=== PATIENT | female | born 1935 | race Caucasian/White ===

== ENCOUNTER 2023-07-07 14:48 | Inpatient (IN) ==
[2023-07-07] MEDS ORDERED: ONDANSETRON INJ 2 MG/ML 2 ML VIAL IV STA (14:53)
[2023-07-07] MEDS ORDERED: SODIUM CHLORIDE 0.9% 500 ML IV STA (14:53)
--- NOTE | 2023-07-07 14:59 | Emergency Department Note ---
Impression & Plan Closed intertrochanteric fracture of left hip, Fall ED Provider Note NAME: LIZA BELL AGE: 88 SEX: F : 1935 ARRIVES VIA: Ambulance INFORMANT: Patient, EMS ED PROVIDER(S): Vicente Pringle DO CHIEF COMPLAINT: Leg pain HPI: The patient is an 88-year-old female who presented to the emergency department for an evaluation after a fall. The patient was going to clean her car off from this snow. The patient fell onto her left side. She had severe pain and deformity in her left leg. She was unable to ambulate. 911 was called. The patient arrived via ambulance. She received fentanyl and Zofran prior to arrival. ROS: See above HPI for pertinent positives & negatives. A total of 10 systems reviewed and were otherwise negative. PAST MEDICAL HISTORY: See Below PAST SURGICAL HISTORY: See Below FAMILY HISTORY: See Below SOCIAL HISTORY: See Below HOME MEDICATIONS: See Below ALLERGIES: See Below VITALS: See Below PHYSICAL EXAMINATION: GENERAL: The patient is awake and alert. She is very anxious. She appears to be uncomfortable. EYES: The conjunctivae are clear. The pupils are round and reactive. EARS, NOSE, MOUTH AND THROAT: The nose is without any evidence of any deformity. NECK: The neck is nontender and supple. RESPIRATORY: Normal respiratory effort is noted there is no evidence of wheezing rhonchi or rales CARDIOVASCULAR: Regular rate and rhythm noted there no murmurs rubs or gallops normal S1 normal S2. GASTROINTESTINAL: The abdomen is soft. Abdomen is nontender. BACK: No midline tenderness or or step-off noted range of motion in flexion extension as well as rotation no signs of muscle spasm noted MUSCULOSKELETAL/EXTREMITIES: There is shortening and deformity of the left thigh. There is significant tenderness to palpation over the midshaft of the femur. Pulses are symmetric in both feet. SKIN: There is no obvious evidence of any rash. There are no petechiae, pallor or cyanosis noted. NEUROLOGIC: Patient is awake alert and oriented x3 MEDICAL DECISION MAKING: The patient is an 88-year-old female who presented to the emergency department after a fall. The patient fell outside on a icy walkway. The patient landed on her left side. The patient's history and physical exam appear to be consistent with hip fracture. This was shown on x-ray of the left hip. She does have a large hematoma over her left femur. I discussed patient's laboratory and radiographic studies with her. I discussed her condition with the on-call [facility] hospitalist as well as the on-call orthopedic surgeon. They have agreed to evaluate the patient in the emergency department. The patient was treated with pain medication. The patient was feeling somewhat improved Triage Nursing notes reviewed. Prior medical records reviewed Vital Signs: reviewed and remarkable for elevated blood pressure. Differential diagnosis: Fracture, dislocation, contusion, intra-abdominal, pneumothorax, intrathoracic, intracranial, neurologic, compartment syndrome, rhabdomyolysis, as well as other pathologies. ER treatment provided: See below Diagnostics interpreted by me: ECG: EKG was obtained in the emergency department. My interpretation is sinus rhythm at 97 bpm. There is a left bundle branch block pattern noted. There is no PVCs noted. This was compared to a tracing from May 19, 2022. No changes were noted Cardiac Monitoring: An order was placed for continuous cardiac monitoring. The monitor shows a rate of 84 bpm with sinus rhythm. Laboratory studies: As stated above and show below. Imaging studies: See below. Radiographic imaging was reviewed by myself Consultation(s): I discussed this case with Dr. David who is on-call for the [facility] hospitalist group. I discussed this case with Dr. Campbell who is on-call for orthopedic surgery. 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 Roberto Osteoporosis Hyperlipidemia Hypertension Thyroid nodule being monitored Surgical History H/O right breast biopsy (06/17/22) Right Breast Biopsy with Alethea Snow Removing Supervisor(Right) - Omid Woodward DO, FACS History of tooth extraction History of tonsillectomy Hx of colonoscopy H/O dilation and curettage S/P surgical removal of pilonidal cyst H/O breast biopsy 1970?>RT/BENIGN S/P colon resection (2006) 2006 S/P appendectomy S/P coronary artery stent placement (2005) 2006>1 stent placed *[facility] Family History Mother Cancer Sister Diabetes Heart disease Cancer Hypertension Other No family history of adverse response to anesthesia Denies family history of Ovarian cancer Prostate cancer Myocardial infarction Breast cancer Colorectal cancer Social History Smoking Status: Former smoker Tobacco Type: Cigarettes Age Started Using Tobacco: 19; Age Quit Using Tobacco: 30; packs per day: 0.25; Cigarettes Per Day: .[id number]; Second Hand Exposure: No; Do You Dip or Chew Tobacco: No; Hx Alcohol Use: No Hx Substance Use: No Preferred Language: [place]al[place] Visual Impairment: Partially Limited Hearing Ability: Normal 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 Required: No Beliefs That Will Affect Care: None marital status: Current Living Situation: Spouse Current Living Situation Comment: Holli Suarez 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 How many Children do You have: 1 Feels Safe at Home: Yes Childhood Exposure to Second-Hand Smoke: Yes Diet: regular Diet Comment: regular caffeine: Yes during the past year weight has: remained stable Dental Care, Regularly: Yes Physical Activity Frequency: Daily Physical Activity Frequency Comment: walking daily Seatbelt Use: always Sunscreen Use: Yes Assistive Devices: Denture - Upper and Denture - Lower Allergies Allergies Allergy/AdvReac Type Severity Reaction Status Date / Time ciprofloxacin [From Cipro] Allergy Mild Rash Verified 06/07/23 13:17 clopidogrel [From Plavix] Allergy Mild Rash Verified 06/07/23 13:17 lisinopril [From Zestril] Allergy Mild Rash Verified 06/07/23 13:17 Penicillins Allergy Mild Rash Verified 06/07/23 13:17 Tetanus Vaccines and Toxoid Allergy Mild Rash Verified 06/07/23 13:17 Calcium Channel Blocking AdvReac Unknown told not Verified 06/07/23 13:17 Agent Dilt to take d/t allergy to plavix isosorbide [From Imdur] AdvReac Unknown told not Verified 06/07/23 13:17 to take d/t allergy to plavix Home Meds Home Medications Medication Instructions Recorded Confirmed acetaminophen 500 mg tablet 500 mg PO Q6H PRN Pain 05/27/20 07/07/23 (Tylenol Extra Strength) aspirin 81 mg tablet,delayed 81 mg PO QAM 05/27/20 07/07/23 release (Adult Aspirin Regimen) cholecalciferol (vitamin D3) 50 50 mcg PO QAM 05/27/20 07/07/23 mcg (2,000 unit) tablet (Vitamin D3) cranberry 500 mg capsule 500 mg PO BID 05/27/20 07/07/23 omeprazole 20 mg capsule,delayed 20 mg PO QAM 05/27/20 07/07/23 release psyllium husk 0.4 gram capsule 0.4 g PO BID 05/27/20 07/07/23 (Metamucil) calcium carbonate 600 mg calcium 600 mg PO BID 06/05/21 07/07/23 (1,500 mg) tablet (Calcium) zoledronic acid 5 mg/100 mL in 1 ea IV YEARLY 09/02/21 06/07/23 mannitol 5 %-water intravenous piggybck (Reclast) amlodipine 2.5 mg-benazepril 10 mg 1 cap PO DAILY 11/12/22 06/07/23 capsule letrozole 2.5 mg tablet 2.5 mg PO DAILY 12/08/22 07/07/23 Previous Rx's Medication Instructions Recorded losartan 100 mg tablet 100 mg PO DAILY #90 tabs 02/03/23 pravastatin 20 mg tablet 20 mg PO DAILY #90 tabs 03/05/23 clonidine HCl 0.1 mg tablet 0.1 mg PO BID #180 tabs 05/03/23 metoprolol tartrate 50 mg tablet 50 mg PO BID #180 tabs 06/28/23 Results & Data (ED) Vital Signs Vital Signs - 24 hr 07/07/23 14:58 07/07/23 15:02 07/07/23 15:03 Temperature 36.8 C Temperature Source Oral Pulse Rate 101 H 106 H Pulse Rate from SpO2 Sensor Respiratory Rate 30 H Respiratory Effort / Characteristics Non-Labored Spontaneous Respiratory Depth Normal Blood Pressure 164/88 H Blood Pressure Mean 113 Pulse Oximetry 92 91 Oxygen Delivery Method Room Air Room Air Oxygen Flow Rate Sepsis Recent Fever Within 48 Hours No Sepsis New/Unexplained Change in Mental Status No Sepsis Action Taken by Nursing No Action Required 07/07/23 15:49 07/07/23 15:49 07/07/23 16:00 Temperature Temperature Source Pulse Rate 93 H Pulse Rate from SpO2 Sensor 98 H Respiratory Rate 20 Respiratory Effort / Characteristics Respiratory Depth Blood Pressure 168/89 H 178/91 H Blood Pressure Mean 122 133 Pulse Oximetry 91 Oxygen Delivery Method Oxygen Flow Rate 2 Sepsis Recent Fever Within 48 Hours Sepsis New/Unexplained Change in Mental Status Sepsis Action Taken by Nursing 07/07/23 16:00 07/07/23 16:30 07/07/23 16:30 Temperature Temperature Source Pulse Rate 97 H 96 H Pulse Rate from SpO2 Sensor 99 H 98 H Respiratory Rate 23 20 Respiratory Effort / Characteristics Respiratory Depth Blood Pressure 169/83 H Blood Pressure Mean 111 Pulse Oximetry 91 91 Oxygen Delivery Method Oxygen Flow Rate 2 2 Sepsis Recent Fever Within 48 Hours Sepsis New/Unexplained Change in Mental Status Sepsis Action Taken by Nursing 07/07/23 17:00 07/07/23 17:01 07/07/23 17:01 Temperature Temperature Source Pulse Rate 96 H 106 H Pulse Rate from SpO2 Sensor 96 H 105 H Respiratory Rate 20 18 Respiratory Effort / Characteristics Respiratory Depth Blood Pressure 122/82 Blood Pressure Mean 84 Pulse Oximetry 90 94 Oxygen Delivery Method Oxygen Flow Rate 2 2 Sepsis Recent Fever Within 48 Hours Sepsis New/Unexplained Change in Mental Status Sepsis Action Taken by Skilled Nursing Medications Current Medication List: was personally reviewed by me Laboratory Data Attestation: I reviewed the patient's lab results. 07/07/23 16:27 07/07/23 16:27 Lab Results 07/07/23 Range/Units 16:27 WBC 12.86 H (4.8-10.8) K/ul RBC 4.59 (4.20-5.40) M/uL Hgb 15.0 (12.0-16.0) g/dl Hct 44.2 (37.0-47.0) % MCV 96.3 (80.0-100.0) fL MCH 32.7 (25.0-34.0) pg MCHC 33.9 (32.0-36.0) g/dL RDW Std Deviation 45.0 (36.4-46.3) fL RDW Coeff of Angela 12.6 (11.5-14.5) % Plt Count 262 (130-400) K/uL MPV 9.7 (9.4-12.4) fL Immature Gran % (Auto) 0.4 % Neut % (Auto) 80.9 % Lymph % (Auto) 12.1 % [place] % (Auto) 4.0 % Eos % (Auto) 1.9 % Baso % (Auto) 0.7 % Neut # (Auto) 10.39 H (1.40-6.50) K/uL Lymph # (Auto) 1.56 (1.20-3.40) K/uL [place] # (Auto) 0.52 (0.11-0.59) K/uL Eos # (Auto) 0.25 (0.00-0.50) K/uL Baso # (Auto) 0.09 (0.00-0.20) K/uL Immature Gran # (Auto) 0.05 (0.01-0.20) K/uL Sodium 135 L (136-145) mmol/L Potassium 4.3 (3.5-5.1) mmol/L Chloride 102 (98-107) mmol/L Carbon Dioxide 24 (21-32) mmol/L Anion Gap 9 (3-11) BUN 29 H (6-23) mg/dl Creatinine 1.26 H (0.6-1.2) mg/dl Est Cr Clr Drug Dosing 23.3 ml/min Est GFR ( Amer) 44.1 ml/min Est GFR (Non-Af Amer) 38.0 ml/min BUN/Creatinine Ratio 23.0 H (10-20) Glucose 139 H (70-99(Fasting)) mg/dl Calcium 9.1 (8.6-10.3) mg/dl Total Bilirubin 0.4 (0.2-1.0) mg/dl AST 19 (13-39) U/L ALT 9 (7-52) U/L Alkaline Phosphatase 49 (34-104) U/L Total Protein 7.2 (6.0-8.3) gm/dl Albumin 3.7 (3.4-5.0) gm/dl Globulin 3.5 (2.5-4.0) gm/dl Albumin/Globulin Ratio 1.1 (0.9-2) Lipase 93 H (11-82) U/L Administered Medications Discontinued Medications Fentanyl Citrate (Fentanyl Citrate Pf 100 Mcg/2 Ml Vial) 50 mcg IV Q15M PRN PRN Reason: Pain Stop: 07/21/23 14:52 Last Admin: 07/07/23 19:24 Dose: 50 mcg Documented By: Admin: 07/07/23 18:17 Dose: 50 mcg Documented By: Admin: 07/07/23 15:46 Dose: 50 mcg Documented By: NATALY Sodium Chloride (Nss) 500 mls @ 999 mls/hr IV .Q31M STA Stop: 07/07/23 15:23 Last Infusion: 07/07/23 17:13 Dose: Infused Documented By: Admin: 07/07/23 15:39 Dose: 999 mls/hr Documented By: NATALY Ondansetron HCl (Ondansetron Inj 2 Mg/Ml 2 Ml Vial) 4 mg IV NOW STA Stop: 07/07/23 14:54 Last Admin: 07/07/23 15:50 Dose: 4 mg Documented By: NATALY Imaging Data Attestation: I personally reviewed and interpreted this imaging study as follows: My Impression: X-ray of the left femur was obtained in the emergency department. My interpretation is displaced comminuted intertrochanteric left hip fracture, final report below. 1 view chest x-ray was obtained in the emergency department. My interpretation is no free air or definite infiltrate, final report below. Radiologist's Impression: Femur X-Ray 07/07/23 14:53 XR femur LT 2V routine CLINICAL HISTORY: fall. Left hip pain. COMPARISON STUDY: None. FINDINGS: There is a comminuted and displaced intertrochanteric fracture within the proximal left femur. No dislocation of the femoral head. The visualized pelvic bones are intact. The mid to distal left femur is intact. IMPRESSION: Comminuted and displaced intertrochanteric fracture within the proximal left femur. ACT 112: Negative or not required by law. Electronically signed by: Peterson Triplett M.D. 07/07/2023 4:00 PM Chest X-Ray 07/07/23 14:54 SINGLE VIEW CHEST CLINICAL HISTORY: Fall. FINDINGS: An AP supine chest radiograph is compared to study dated 05/19/2022. The heart is mildly enlarged noting atherosclerotic calcification of the thoracic aorta. There is diffuse interstitial thickening. No focal airspace consolidation or large pleural effusion is identified. No pneumothorax is seen. The skeletal structures are osteopenic. The bony thorax is grossly intact. IMPRESSION: 1. Cardiomegaly without radiographic evidence of congestive failure. 2. There is diffuse nonspecific interstitial thickening. This could represent a mild pneumonitis or possibly fluid overload. Correlate clinically. ACT 112: Negative or not required by law. Electronically signed by: Mao Greenwood M.D. 07/07/2023 3:50 PM Pelvis X-Ray 07/07/23 16:36 SINGLE VIEW PELVIS CLINICAL HISTORY: Preoperative examination. Left hip fracture. FINDINGS: An AP, portable, supine view of the pelvis is correlated with radiographs of the left femur performed earlier the same day 07/07/2023. The skeletal structures are osteopenic. Again seen is a comminuted and angulated intertrochanteric fracture of the left proximal femur. There is medial displacement of the lesser trochanter. Overlying soft tissue edema is noted. No additional acute fracture is seen involving the right hip or the bony pelvis. Moderate arthritic change and joint space narrowing is seen in the hips. There is degenerative sclerosis of the sacroiliac joints. IMPRESSION: 1. Unchanged appearance of an intertrochanteric fracture of the left proximal femur. 2. No additional fracture is seen involving the right hip or the bony pelvis. Electronically signed by: Mao Greenwood M.D. 07/07/2023 5:34 PM Discharge Plan Visit Data Chief Complaint: Fall Stated Complaint: FALL, HIP PAIN ED Provider: Vicente Pringle Discharge Problem: Closed intertrochanteric fracture of left hip, Fall Patient Disposition: Admitted As Inpatient Discharge Instructions Interventions: ED Discharge Assessment Last Done: 07/07/23 19:38 Discharge Problem: Closed intertrochanteric fracture of left hip Qualifiers: Encounter type: initial encounter Fracture alignment: displaced Qualified Code(s): S72.142A - Displaced intertrochanteric fracture of left femur, initial encounter for closed fracture Fall Qualifiers: Encounter type: initial encounter Qualified Code(s): W19.XXXA - Unspecified fall, initial encounter
[2023-07-07] MEDS: fentaNYL citrate PF 100 MCG/2 ML VIAL IV PRN ×3 (15:46→19:24)
--- NOTE | 2023-07-07 15:52 | XRay Report ---
SINGLE VIEW CHEST CLINICAL HISTORY: Fall. FINDINGS: An AP supine chest radiograph is compared to study dated 05/19/2022. The heart is mildly en larged noting atherosclerotic calcification of the thoracic aorta. There is diffuse interstitial thic kening. No focal airspace consolidation or large pleural effusion is identified. No pneumothorax is s een. The skeletal structures are osteopenic. The bony thorax is grossly intact. IMPRESSION: 1. Cardiomegaly without radiographic evidence of congestive failure. 2. There is diffuse nonspecific interstitial thickening. This could represent a mild pneumonitis or p ossibly fluid overload. Correlate clinically. ACT 112: Negative or not required by law. Electronically signed by: Mao Greenwood M.D. 07/07/2023 3:50 PM
--- NOTE | 2023-07-07 16:03 | XRay Report ---
XR femur LT 2V routine CLINICAL HISTORY: fall. Left hip pain. COMPARISON STUDY: None. FINDINGS: There is a comminuted and displaced intertrochanteric fracture within the proximal left fem ur. No dislocation of the femoral head. The visualized pelvic bones are intact. The mid to distal lef t femur is intact. IMPRESSION: Comminuted and displaced intertrochanteric fracture within the proximal left femur. ACT 112: Negative or not required by law. Electronically signed by: Peterson Triplett M.D. 07/07/2023 4:00 PM
--- NOTE | 2023-07-07 16:09 | History & Physical Report ---
Date of Service July 07, 2023 Assessment & Plan (1) Fall: Plan: Patient slipped on ice and fell on her left side while going to clean off her car in the snow on 07/07 Multiple episodes of vomiting due to pain Hgb 15.0 and HCT 44.2 on arrival EKG revealed NSR at 97 bpm; QTc 480; old LBBB Femur x-ray revealed comminuted and displaced intertrochanteric fracture within the proximal left femur Patient received fentanyl 50mcg and Zofran 4 mg in the ED Multimodal pain regimen regimen as follows: Acetaminophen 1000 mg IV q8h for pain 13 Dilaudid 0.5 mg IV q2h for pain 46 Dilaudid 1.0 mg IV q2h for pain 710 Zofran as needed for nausea/vomiting Orthopedic surgery consulted; perioperative abx per ortho team A.m. CBC, BMP (2) Closed intertrochanteric fracture of left hip: Plan: Per orthopedic surgery, n.p.o. at midnight and plan is to go to the OR on 07/08 (3) Stented coronary artery: Plan: CAD s/p stent in 2006 Patient reports she took aspirin the morning of 07/07 Hold aspirin prior to surgery on 07/08, then consider restarting postop (4) Chronic kidney disease, stage 3 (moderate): Plan: BUN 29, creatinine 1.26 (baseline 1.09), EGFR 38 on arrival Avoid nephrotoxic agents where possible (5) GERD (gastroesophageal reflux disease): Plan: Continue omeprazole or pantoprazole equivalent (6) Hyperlipidemia: Plan: Continue pravastatin (7) Hypertension: Plan: Continue metoprolol Hold losartan, clonidine for now Patient is unsure if she is taking amlodipinebenazepril Plan [facility]: [facility]/DNI AHA diet, then n.p.o. 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 Patient presented after slipping on ice while going outside to clean her car from the side on 07/07. She fell on her left hip. Denies head strike. She does not use ambulatory assist devices at home. She reports that she took all of her regular morning medications; no recent change medications. She reports that her memory of falling was foggy, but denies dizziness or lightheadedness before falling. Left femur x-ray revealed a displaced intertrochanteric fracture within the proximal left femur on arrival. She denies prior injuries to the left leg, but notes she might have broken one of her legs when she was 5 years old. At time of admission, she reports her left hip pain is 6/10; no radiation; movement makes it worse. No at home oxygen use. She denies alcohol, smoking, tobacco use. SpO2 89% on 4 L NC, hypertensive at 164/88, mildly tachycardic at 106 bpm at time of admission. ED course: Fentanyl 50mcg IV Zofran 4 mg IV ROS: Patient endorses severe left hip pain, nausea from pain, vomiting x5 episodes (due to the pain). Patient denies fever, chills, sweats, dizziness, lightheadedness, chest pain, SOB, abdominal pain, diarrhea, urinary s/s, burning with urination, or numbness/tingling in the left leg. Allergies Allergy/AdvReac Type Severity Reaction Status Date / Time ciprofloxacin [From Cipro] Allergy Mild Rash Verified 06/07/23 13:17 clopidogrel [From Plavix] Allergy Mild Rash Verified 06/07/23 13:17 lisinopril [From Zestril] Allergy Mild Rash Verified 06/07/23 13:17 Penicillins Allergy Mild Rash Verified 06/07/23 13:17 Tetanus Vaccines and Toxoid Allergy Mild Rash Verified 06/07/23 13:17 Calcium Channel Blocking AdvReac Unknown told not Verified 06/07/23 13:17 Agent Dilt to take d/t allergy to plavix isosorbide [From Imdur] AdvReac Unknown told not Verified 06/07/23 13:17 to take d/t allergy to plavix Home Medications Medication Instructions Recorded Confirmed Type acetaminophen 500 mg tablet 500 mg PO Q6H PRN Pain 05/27/20 07/07/23 History (Tylenol Extra Strength) aspirin 81 mg tablet,delayed 81 mg PO QAM 05/27/20 07/07/23 History release (Adult Aspirin Regimen) cholecalciferol (vitamin D3) 50 50 mcg PO QAM 05/27/20 07/07/23 History mcg (2,000 unit) tablet (Vitamin D3) cranberry 500 mg capsule 500 mg PO BID 05/27/20 07/07/23 History omeprazole 20 mg capsule,delayed 20 mg PO QAM 05/27/20 07/07/23 History release psyllium husk 0.4 gram capsule 0.4 g PO BID 05/27/20 07/07/23 History (Metamucil) calcium carbonate 600 mg calcium 600 mg PO BID 06/05/21 07/07/23 History (1,500 mg) tablet (Calcium) zoledronic acid 5 mg/100 mL in 1 ea IV YEARLY 09/02/21 06/07/23 History mannitol 5 %-water intravenous piggybck (Reclast) amlodipine 2.5 mg-benazepril 10 mg 1 cap PO DAILY 11/12/22 06/07/23 History capsule letrozole 2.5 mg tablet 2.5 mg PO DAILY 12/08/22 07/07/23 History losartan 100 mg tablet 100 mg PO DAILY #90 tabs 02/03/23 07/07/23 Rx pravastatin 20 mg tablet 20 mg PO DAILY #90 tabs 03/05/23 07/07/23 Rx clonidine HCl 0.1 mg tablet 0.1 mg PO BID #180 tabs 05/03/23 07/07/23 Rx metoprolol tartrate 50 mg tablet 50 mg PO BID #180 tabs 06/28/23 07/07/23 Rx Past Med/Surg History Medical History 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 Roberto Osteoporosis Hyperlipidemia Hypertension Thyroid nodule being monitored Surgical History H/O right breast biopsy (06/17/22) Right Breast Biopsy with Alethea Boatbuilder Supervisor(Right) - Omid Woodward DO, FACS History of tooth extraction History of tonsillectomy Hx of colonoscopy H/O dilation and curettage S/P surgical removal of pilonidal cyst H/O breast biopsy 1970?>RT/BENIGN S/P colon resection (2006) 2006 S/P appendectomy S/P coronary artery stent placement (2005) 2005>1 stent placed *[facility] Family History Mother Cancer Sister Diabetes Heart disease Cancer Hypertension Other No family history of adverse response to anesthesia Denies family history of Ovarian cancer Prostate cancer Myocardial infarction Breast cancer Colorectal cancer Social History Smoking Status: Former smoker Tobacco Type: Cigarettes Age Started Using Tobacco: 19; Age Quit Using Tobacco: 30; packs per day: 0.25; Cigarettes Per Day: .[id number]; Second Hand Exposure: No; Do You Dip or Chew Tobacco: No; Hx Alcohol Use: No Hx Substance Use: No Preferred Language: Albanian Visual Impairment: Partially Limited Hearing Ability: Normal Outsole Cementer Required: No Beliefs That Will Affect Care: None marital status: Current Living Situation: Spouse Current Living Situation Comment: Holli Suarez 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 How many Children do You have: 1 Feels Safe at Home: Yes Childhood Exposure to Second-Hand Smoke: Yes Diet: regular Diet Comment: regular caffeine: Yes during the past year weight has: remained stable Dental Care, Regularly: Yes Physical Activity Frequency: Daily Physical Activity Frequency Comment: walking daily Seatbelt Use: always Sunscreen Use: Yes Assistive Devices: Denture - Upper and Denture - Lower Review of Systems Review of Systems: See HPI above Physical Exam Physical Exam: General: Acute physical distress; non-toxic appearing; frail; trembling; well- nourished; cooperative HEENT: normocephalic, atraumatic; no scleral icterus; PERRLA w/ EOMs intact; moist mucus membrane; vision and hearing grossly intact Neck: supple; no JVD; no lymphadenopathy; trachea midline Skin: warm, dry without signs of tenting; no cyanosis; no rashes, bruising, lesions, or erythema noted CV: chest wall NTP; RR, tachycardic at 106 bpm; S1/S2 normal; no murmurs/rubs/gallops; pulses intact and symmetric at radial, DP, and PT Lungs: no acute respiratory distress; symmetrical chest wall expansion; clear breath sounds across all lung delatorre w/o adventitious sounds; no wheezing ABD: Soft, NTP; BS present; no rebound/guarding; no ascites; no distention; negative CVA tenderness LLE: Left hip protruding, TTP; no erythema, bruising, or signs of bleed MSK: no tics or fasciculations; no edema noted in the LEs b/l, nonerythematous; patient demonstrates ability to wiggle toes bilaterally Neuro: A&Ox3; normal mood and affect; fluent speech; no focal deficits; she reports that sensation is intact at the toes bilaterally assessed via light touch; feet are neurovascularly intact, symmetric Results & Data Results & Data Vital Signs (Past 12 Hours) Vital Signs Temp Pulse Resp BP Pulse Ox O2 Del Method 07/07/23 15:03 91 Room Air 07/07/23 15:02 106 H 07/07/23 14:58 36.8 C 101 H 30 H 164/88 H 92 Room Air Diagnostic Findings Femur X-Ray 07/07/23 14:53 XR femur LT 2V routine CLINICAL HISTORY: fall. Left hip pain. COMPARISON STUDY: None. FINDINGS: There is a comminuted and displaced intertrochanteric fracture within the proximal left femur. No dislocation of the femoral head. The visualized pelvic bones are intact. The mid to distal left femur is intact. IMPRESSION: Comminuted and displaced intertrochanteric fracture within the proximal left femur. ACT 112: Negative or not required by law. Electronically signed by: Peterson Triplett M.D. 07/07/2023 4:00 PM Chest X-Ray 07/07/23 14:54 SINGLE VIEW CHEST CLINICAL HISTORY: Fall. FINDINGS: An AP supine chest radiograph is compared to study dated 05/19/2022. The heart is mildly enlarged noting atherosclerotic calcification of the thoracic aorta. There is diffuse interstitial thickening. No focal airspace consolidation or large pleural effusion is identified. No pneumothorax is seen. The skeletal structures are osteopenic. The bony thorax is grossly intact. IMPRESSION: 1. Cardiomegaly without radiographic evidence of congestive failure. 2. There is diffuse nonspecific interstitial thickening. This could represent a mild pneumonitis or possibly fluid overload. Correlate clinically. ACT 112: Negative or not required by law. Electronically signed by: Mao Greenwood M.D. 07/07/2023 3:50 PM Code Status & VTE Plan Code Status DNR/DNI VTE Prophylaxis Plan VTE Prophylaxis will be ordered: Yes PG Care Time/CCT Total # of Minutes Spent Total Time Spent with Patient: Total time spent is greater than 50% in coordination of care (as documented) at patient's floor/unit and/or counseling patient: Coding [place] [address] INT INP/OBS CARE 3/75MIN Patient Type Established Medical Decision Making High Complexity Diagnoses Fall W19.XXXA Encounter type: initial encounter Closed intertrochanteric fracture of left hip S72.142A Encounter type: initial encounter Fracture alignment: displaced Stented coronary artery Z95.5 Chronic kidney disease, stage 3 (moderate) N18.30 GERD (gastroesophageal reflux disease) K21.9 Hyperlipidemia E78.5 Hypertension I10 (1) Fall Encounter type: initial encounter Qualified Code(s): W19.XXXA - Unspecified fall, initial encounter (2) Closed intertrochanteric fracture of left hip Encounter type: initial encounter Fracture alignment: displaced Qualified Code(s): S72.142A - Displaced intertrochanteric fracture of left femur, initial encounter for closed fracture
[2023-07-07 16:52] LABS: Basophils # (auto) 0.09 K/uL (0.00-0.20); Basophils % (auto) 0.7 %; Eosinophils # (auto) 0.25 K/uL (0.00-0.50); Eosinophils % (auto) 1.9 %; Hematocrit (blood only) 44.2 % (37.0-47.0); Immature Granulocytes # (auto) 0.05 K/uL (0.01-0.20); Immature Granulocytes % (auto) 0.4 %; Lymphocytes # (auto) 1.56 K/uL (1.20-3.40); Lymphocytes % (auto) 12.1 %; Mean Corpuscular Hemoglobin 32.7 pg (25.0-34.0); Mean Corpuscular Hgb Conc 33.9 g/dL (32.0-36.0); Mean Corpuscular Volume 96.3 fL (80.0-100.0); Mean Platelet Volume 9.7 fL (9.4-12.4); Monocytes # (auto) 0.52 K/uL (0.11-0.59); Neutrophils # (auto) 10.39 K/uL (1.40-6.50); Neutrophils % (auto) 80.9 %; Platelet Count 262 K/uL (130-400); RDW Coefficient of Variation 12.6 % (11.5-14.5); Red Blood Count 4.59 M/uL (4.20-5.40); White Blood Count 12.86 K/ul (4.8-10.8)
[2023-07-07 17:00] LABS: Albumin Globulin Ratio 1.1 (0.9-2); Albumin Level 3.7 gm/dl (3.4-5.0); Bilirubin,Total 0.4 mg/dl (0.2-1.0); Calcium 9.1 mg/dl (8.6-10.3); Creatinine Clr Calc Pharmacy 23.3 ml/min; Est GFR (African American) 44.1 ml/min; Globulin 3.5 gm/dl (2.5-4.0); Potassium 4.3 mmol/L (3.5-5.1); Total Protein 7.2 gm/dl (6.0-8.3)
--- NOTE | 2023-07-07 17:25 | Orthopedic Consultation ---
Date of Consultation July 07, 2023 Assessment & Plan (1) Closed intertrochanteric fracture of left hip: Patient will require surgical intervention Left hip ORIF trochanteric femur fracture. Scheduled for OR tomorrow with Dr Draper Discussed with family and patient -Consent obtained -NPO midnight tonight -Hold anticoagulants -Intra-op infection prophylaxis: 2grams Cefazolin -Medicine involved to ensure patient optimized for surgery -Pre-op IV LR fluids -Void infection prevention practitioner to OR -TEDS/foot pumps non-operative leg intra-op -Pain control per primary Supervising Physician Co-Signing Physician Notes I saw and examined the patient, reviewed her x-rays and chart in the electronic medical record, formulated the above plan, and obtained written informed consent from the patient and the presence of her and neighbor as well as my PA. This constitutes the substantial portion of the visit. Plan will be for open reduction internal fixation of her left intertrochanteric femur fracture tomorrow assuming she is medically cleared. N.p.o. after midnight tonight. History of Present Illness Reason for Consultation: Left hip fracture History of Present Illness Petra is an 88-year-old female with PMH of HTN, HLD, osteoporosis, CAD, GERD, CKD stage III, arthritis, papillary adenocarcinoma, and AV insufficiency. Patient presented for a fall on 07/07 around noon. Left femur x-ray revealed a displaced intertrochanteric fracture within the proximal left femur on arrival. Patient seen by myself and Dr Draper who recommended surgical intervention. Patient is currently on daily 81mg aspirin. She walks with no walker or cane prior to her fall. Her pain is 6/10 currently. She denies any n/t in her left leg. She is unable to move her leg. She denies any prior issues or surgeries with her hip or left leg. Allergies Allergy/AdvReac Type Severity Reaction Status Date / Time ciprofloxacin [From Cipro] Allergy Mild Rash Verified 06/07/23 13:17 clopidogrel [From Plavix] Allergy Mild Rash Verified 06/07/23 13:17 lisinopril [From Zestril] Allergy Mild Rash Verified 06/07/23 13:17 Penicillins Allergy Mild Rash Verified 06/07/23 13:17 Tetanus Vaccines and Toxoid Allergy Mild Rash Verified 06/07/23 13:17 Calcium Channel Blocking AdvReac Unknown told not Verified 06/07/23 13:17 Agent Dilt to take d/t allergy to plavix isosorbide [From Imdur] AdvReac Unknown told not Verified 06/07/23 13:17 to take d/t allergy to plavix Home Medications Medication Instructions Recorded Confirmed Type acetaminophen 500 mg tablet 500 mg PO Q6H PRN Pain 05/27/20 07/07/23 History (Tylenol Extra Strength) aspirin 81 mg tablet,delayed 81 mg PO QAM 05/27/20 07/07/23 History release (Adult Aspirin Regimen) cholecalciferol (vitamin D3) 50 50 mcg PO QAM 05/27/20 07/07/23 History mcg (2,000 unit) tablet (Vitamin D3) cranberry 500 mg capsule 500 mg PO BID 05/27/20 07/07/23 History omeprazole 20 mg capsule,delayed 20 mg PO QAM 05/27/20 07/07/23 History release psyllium husk 0.4 gram capsule 0.4 g PO BID 05/27/20 07/07/23 History (Metamucil) calcium carbonate 600 mg calcium 600 mg PO BID 06/05/21 07/07/23 History (1,500 mg) tablet (Calcium) zoledronic acid 5 mg/100 mL in 1 ea IV YEARLY 09/02/21 06/07/23 History mannitol 5 %-water intravenous piggybck (Reclast) amlodipine 2.5 mg-benazepril 10 mg 1 cap PO DAILY 11/12/22 06/07/23 History capsule letrozole 2.5 mg tablet 2.5 mg PO DAILY 12/08/22 07/07/23 History losartan 100 mg tablet 100 mg PO DAILY #90 tabs 02/03/23 07/07/23 Rx pravastatin 20 mg tablet 20 mg PO DAILY #90 tabs 03/05/23 07/07/23 Rx clonidine HCl 0.1 mg tablet 0.1 mg PO BID #180 tabs 05/03/23 07/07/23 Rx metoprolol tartrate 50 mg tablet 50 mg PO BID #180 tabs 06/28/23 07/07/23 Rx Patient History Medical History 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 Roberto Osteoporosis Hyperlipidemia Hypertension Thyroid nodule being monitored Surgical History H/O right breast biopsy (06/17/22) Right Breast Biopsy with Alethea Food Service Clerk(Right) - Omid Woodward DO, FACS History of tooth extraction History of tonsillectomy Hx of colonoscopy H/O dilation and curettage S/P surgical removal of pilonidal cyst H/O breast biopsy 1969?>RT/BENIGN S/P colon resection (2006) 2006 S/P appendectomy S/P coronary artery stent placement (2005) 2005>1 stent placed *[facility] Family History Mother Cancer Sister Diabetes Heart disease Cancer Hypertension Other No family history of adverse response to anesthesia Denies family history of Ovarian cancer Prostate cancer Myocardial infarction Breast cancer Colorectal cancer Social History Smoking Status: Former smoker Tobacco Type: Cigarettes Age Started Using Tobacco: 19; Age Quit Using Tobacco: 30; packs per day: 0.25; Cigarettes Per Day: .[id number]; Second Hand Exposure: No; Do You Dip or Chew Tobacco: No; Hx Alcohol Use: No Hx Substance Use: No Preferred Language: Thai Visual Impairment: Partially Limited Hearing Ability: Normal Service Center Representative Required: No Beliefs That Will Affect Care: None marital status: Current Living Situation: Spouse Current Living Situation Comment: Holli Suarez 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 Appears to be in pain LLE: leg shortened and externally rotated. Patient has her knee bent at 90. Skin intact, however, she has large hematoma present left anterior proximal thigh. Tender to the touch. She can wiggle her toes. Distal extremity warm and pink. Faint DP pulse. Sensation in tact distally. CVS:+S1, +S2, RRR, no murmurs Lungs: CLABL, no wheezing or ronchi Results & Data Vital Signs (Past 12 Hours) Vital Signs Temp Pulse Resp BP Pulse Ox O2 Del Method 07/07/23 15:03 91 Room Air 07/07/23 15:02 106 H 07/07/23 14:58 36.8 C 101 H 30 H 164/88 H 92 Room Air Laboratory Results 07/07/23 Range/Units 16:27 WBC 12.86 H (4.8-10.8) K/ul RBC 4.59 (4.20-5.40) M/uL Hgb 15.0 (12.0-16.0) g/dl Hct 44.2 (37.0-47.0) % MCV 96.3 (80.0-100.0) fL MCH 32.7 (25.0-34.0) pg MCHC 33.9 (32.0-36.0) g/dL RDW Std Deviation 45.0 (36.4-46.3) fL RDW Coeff of Angela 12.6 (11.5-14.5) % Plt Count 262 (130-400) K/uL MPV 9.7 (9.4-12.4) fL Immature Gran % (Auto) 0.4 % Neut % (Auto) 80.9 % Lymph % (Auto) 12.1 % [place] % (Auto) 4.0 % Eos % (Auto) 1.9 % Baso % (Auto) 0.7 % Neut # (Auto) 10.39 H (1.40-6.50) K/uL Lymph # (Auto) 1.56 (1.20-3.40) K/uL [place] # (Auto) 0.52 (0.11-0.59) K/uL Eos # (Auto) 0.25 (0.00-0.50) K/uL Baso # (Auto) 0.09 (0.00-0.20) K/uL Immature Gran # (Auto) 0.05 (0.01-0.20) K/uL Sodium 135 L (136-145) mmol/L Potassium 4.3 (3.5-5.1) mmol/L Chloride 102 (98-107) mmol/L Carbon Dioxide 24 (21-32) mmol/L Anion Gap 9 (3-11) BUN 29 H (6-23) mg/dl Creatinine 1.26 H (0.6-1.2) mg/dl Est Cr Clr Drug Dosing 23.3 ml/min Est GFR ( Amer) 44.1 ml/min Est GFR (Non-Af Amer) 38.0 ml/min BUN/Creatinine Ratio 23.0 H (10-20) Glucose 139 H (70-99(Fasting)) mg/dl Calcium 9.1 (8.6-10.3) mg/dl Total Bilirubin 0.4 (0.2-1.0) mg/dl AST 19 (13-39) U/L ALT 9 (7-52) U/L Alkaline Phosphatase 49 (34-104) U/L Total Protein 7.2 (6.0-8.3) gm/dl Albumin 3.7 (3.4-5.0) gm/dl Globulin 3.5 (2.5-4.0) gm/dl Albumin/Globulin Ratio 1.1 (0.9-2) Lipase 93 H (11-82) U/L Diagnostic Findings Femur X-Ray 07/07/23 14:53 XR femur LT 2V routine CLINICAL HISTORY: fall. Left hip pain. COMPARISON STUDY: None. FINDINGS: There is a comminuted and displaced intertrochanteric fracture within the proximal left femur. No dislocation of the femoral head. The visualized pelvic bones are intact. The mid to distal left femur is intact. IMPRESSION: Comminuted and displaced intertrochanteric fracture within the proximal left femur. ACT 112: Negative or not required by law. Electronically signed by: Peterson Triplett M.D. 07/07/2023 4:00 PM Chest X-Ray 07/07/23 14:54 SINGLE VIEW CHEST CLINICAL HISTORY: Fall. FINDINGS: An AP supine chest radiograph is compared to study dated 05/19/2022. The heart is mildly enlarged noting atherosclerotic calcification of the thoracic aorta. There is diffuse interstitial thickening. No focal airspace consolidation or large pleural effusion is identified. No pneumothorax is seen. The skeletal structures are osteopenic. The bony thorax is grossly intact. IMPRESSION: 1. Cardiomegaly without radiographic evidence of congestive failure. 2. There is diffuse nonspecific interstitial thickening. This could represent a mild pneumonitis or possibly fluid overload. Correlate clinically. ACT 112: Negative or not required by law. Electronically signed by: Mao Greenwood M.D. 07/07/2023 3:50 PM (1) Closed intertrochanteric fracture of left hip Encounter type: initial encounter Fracture alignment: displaced Qualified Code(s): S72.142A - Displaced intertrochanteric fracture of left femur, initial encounter for closed fracture
--- NOTE | 2023-07-07 17:35 | XRay Report ---
SINGLE VIEW PELVIS CLINICAL HISTORY: Preoperative examination. Left hip fracture. FINDINGS: An AP, portable, supine view of the pelvis is correlated with radiographs of the left femur performed earlier the same day 07/07/2023. The skeletal structures are osteopenic. Again seen is a co mminuted and angulated intertrochanteric fracture of the left proximal femur. There is medial displac ement of the lesser trochanter. Overlying soft tissue edema is noted. No additional acute fracture is seen involving the right hip or the bony pelvis. Moderate arthritic change and joint space narrowing is seen in the hips. There is degenerative sclerosis of the sacroiliac joints. IMPRESSION: 1. Unchanged appearance of an intertrochanteric fracture of the left proximal femur. 2. No additional fracture is seen involving the right hip or the bony pelvis. Electronically signed by: Mao Greenwood M.D. 07/07/2023 5:34 PM
[2023-07-07 18:26] LABS: Appearance Urine Clear (Clear); Bacteria Urine Automated Negative (Negative); Bilirubin Urine Negative (Negative); Blood Urine 2+ (Negative); Color Urine Dark Yellow; Glucose Urine UA Negative (Negative); Ketones Urine Trace (Negative); Leukocyte Esterase Urine Negative (Negative); Nitrite Urine Negative (Negative); Protein Urine 1+ (Negative); RBC Urine Automated >30 /hpf (0-4); Specific Gravity Urine 1.023 (1.000-1.030); Urobilinogen Urine Negative (Negative)
[2023-07-07] MEDS ORDERED: ACETAMINOPHEN 1,000 MG/100 ML VIAL IV PRN (19:38)
[2023-07-07] MEDS ORDERED: NALOXONE HCL 0.4 MG/1 ML VIAL/CARP IV PRN (19:38)
[2023-07-07] MEDS: HYDROmorphone INJ 1 MG/ML SYRINGE IV PRN (20:23)
[2023-07-07] MEDS: PSYLLIUM or GUAR GUM FIBER POWDER PACKET PO SCH (22:43)
[2023-07-07] MEDS: METOPROLOL TARTRATE 50 MG TAB PO SCH (22:44)
[2023-07-08] MEDS: HYDROmorphone INJ 0.5 MG/0.5 ML SYR IV PRN (03:03)
[2023-07-08] MEDS ORDERED: LACTATED RINGER'S 1,000 ML IV SCH (06:00)
[2023-07-08] MEDS ORDERED: ceFAZolin 2000MG 2,000 MG/15 ML SYR IV SCH (06:00)
[2023-07-08] MEDS: PSYLLIUM or GUAR GUM FIBER POWDER PACKET PO SCH ×3 (07:47→21:18)
[2023-07-08] MEDS: LETROZOLE 2.5 MG TAB PO SCH (07:47)
[2023-07-08] MEDS: PANTOprazole 40 MG TAB PO SCH (07:48)
[2023-07-08] MEDS: METOPROLOL TARTRATE 50 MG TAB PO SCH ×2 (07:48→21:18)
[2023-07-08] MEDS: PRAVASTATIN SOD 20 MG TAB PO SCH (07:48)
[2023-07-08 07:53] LABS: Basophils # (auto) 0.03 K/uL (0.00-0.20); Basophils % (auto) 0.2 %; Hematocrit (blood only) 42.5 % (37.0-47.0); Hemoglobin 14.6 g/dl (12.0-16.0); Immature Granulocytes # (auto) 0.06 K/uL (0.01-0.20); Immature Granulocytes % (auto) 0.4 %; Lymphocytes # (auto) 1.11 K/uL (1.20-3.40); Lymphocytes % (auto) 7.2 %; Mean Corpuscular Hemoglobin 32.5 pg (25.0-34.0); Mean Corpuscular Hgb Conc 34.4 g/dL (32.0-36.0); Mean Corpuscular Volume 94.7 fL (80.0-100.0); Mean Platelet Volume 10.8 fL (9.4-12.4); Monocytes # (auto) 0.79 K/uL (0.11-0.59); Monocytes % (auto) 5.2 %; Neutrophils # (auto) 13.34 K/uL (1.40-6.50); Platelet Count 183 K/uL (130-400); RDW Standard Deviation 45.1 fL (36.4-46.3); Red Blood Count 4.49 M/uL (4.20-5.40); White Blood Count 15.33 K/ul (4.8-10.8)
[2023-07-08 08:14] LABS: BUN Creatinine Ratio 25.2 (10-20); Calcium 9.4 mg/dl (8.6-10.3); Creatinine Clr Calc Pharmacy 20.5 ml/min; Est GFR (African American) 37.8 ml/min; Est GFR (Non-African American) 32.6 ml/min; Potassium 4.5 mmol/L (3.5-5.1)
[2023-07-08] MEDS: HYDROmorphone INJ 1 MG/ML SYRINGE IV PRN ×3 (08:20→19:17)
[2023-07-08] MEDS: ONDANSETRON INJ 2 MG/ML 2 ML VIAL IV PRN (08:21)
--- NOTE | 2023-07-08 10:25 | Orthopedic Progress Note ---
Date of Service July 08, 2023 Assessment & Plan (1) Closed intertrochanteric fracture of left hip: Plan: Patient is scheduled for a Left hip ORIF trochanteric femur fracture with Dr. Draper today, 07/08/23 -Consent obtained previously -NPO has been maintained since midnight -Continue to hold anticoagulants -Intra-op infection prophylaxis: 2grams Cefazolin -Pre-op IV LR fluids -Void almond blancher operator to OR -TEDS/foot pumps non-operative leg intra-op -Pain control per primary -We will continue to follow post operatively Admission and Anticipated Discharge Date Admission Date: July 07, 2023 Subjective Patient is an 88-year-old female who is a patient of Dr. Draper's. She is waiting to be taken to the OR for surgical intervention for a closed intertrochanteric fracture of the left hip. Patient states her pain is manage and reports it to be 3/10. She states it does not bother her unless it is moved or somebody tries to move it. She denies any numbness or tingling in the leg. She denies having anything to eat or drink after midnight. She offers no concerns or questions in regards to surgery. She denies any fever, chills, chest pain or shortness of breath Review of Systems Review of Systems: Please refer to HPI Physical Exam Physical Exam: General: Pt laying bed Alert and oriented x3 No acute distress LLE: leg shortened and externally rotated. Patient has her knee bent at 90. Skin intact, large hematoma present left anterior proximal thigh unchanged from last night. Tender to the touch. She can wiggle her toes. Distal extremity warm and pink. Faint DP pulse. Sensation intact over the LLE Results & Data Vital Signs (Past 12 Hours) Vital Signs Temp Pulse Pulse Resp BP Pulse Ox O2 Del Method 07/08/23 10:15 93 H 07/08/23 07:46 36.6 C 127 H 15 133/71 96 Nasal Cannula 07/08/23 03:31 36.7 C 118 H 22 139/66 99 Nasal Cannula 07/07/23 22:38 110 H O2 Flow Rate 07/08/23 10:15 07/08/23 07:46 2 07/08/23 03:31 2 07/07/23 22:38 Laboratory Results 07/08/23 07/07/23 07/07/23 Range/Units 06:40 17:38 16:27 WBC 15.33 H 12.86 H (4.8-10.8) K/ul RBC 4.49 4.59 (4.20-5.40) M/uL Hgb 14.6 15.0 (12.0-16.0) g/dl Hct 42.5 44.2 (37.0-47.0) % MCV 94.7 96.3 (80.0-100.0) fL MCH 32.5 32.7 (25.0-34.0) pg MCHC 34.4 33.9 (32.0-36.0) g/dL RDW Std Deviation 45.1 45.0 (36.4-46.3) fL RDW Coeff of Angela 13.0 12.6 (11.5-14.5) % Plt Count 183 262 (130-400) K/uL MPV 10.8 9.7 (9.4-12.4) fL Immature Gran % (Auto) 0.4 0.4 % Neut % (Auto) 87.0 80.9 % Lymph % (Auto) 7.2 12.1 % Isabella % (Auto) 5.2 4.0 % Eos % (Auto) 0.0 1.9 % Baso % (Auto) 0.2 0.7 % Neut # (Auto) 13.34 H 10.39 H (1.40-6.50) K/uL Lymph # (Auto) 1.11 L 1.56 (1.20-3.40) K/uL Isabella # (Auto) 0.79 H 0.52 (0.11-0.59) K/uL Eos # (Auto) 0.00 0.25 (0.00-0.50) K/uL Baso # (Auto) 0.03 0.09 (0.00-0.20) K/uL Immature Gran # (Auto) 0.06 0.05 (0.01-0.20) K/uL Sodium 136 135 L (136-145) mmol/L Potassium 4.5 4.3 (3.5-5.1) mmol/L Chloride 101 102 (98-107) mmol/L Carbon Dioxide 25 24 (21-32) mmol/L Anion Gap 10 9 (3-11) BUN 36 H 29 H (6-23) mg/dl Creatinine 1.43 H 1.26 H (0.6-1.2) mg/dl Est Cr Clr Drug Dosing 20.5 23.3 ml/min Est GFR ( Amer) 37.8 44.1 ml/min Est GFR (Non-Af Amer) 32.6 38.0 ml/min BUN/Creatinine Ratio 25.2 H 23.0 H (10-20) Glucose 148 H 139 H (70-99(Fasting)) mg/dl Calcium 9.4 9.1 (8.6-10.3) mg/dl Total Bilirubin 0.4 (0.2-1.0) mg/dl AST 19 (13-39) U/L ALT 9 (7-52) U/L Alkaline Phosphatase 49 (34-104) U/L Total Protein 7.2 (6.0-8.3) gm/dl Albumin 3.7 (3.4-5.0) gm/dl Globulin 3.5 (2.5-4.0) gm/dl Albumin/Globulin Ratio 1.1 (0.9-2) Lipase 93 H (11-82) U/L Urine Color Dark Yellow Urine Appearance Clear (Clear) Urine pH 6.0 (4.5-7.5) Ur Specific [place] 1.023 (1.000-1.030) Urine Protein 1+ H (Negative) Urine Glucose (UA) Negative (Negative) Urine Ketones Trace H (Negative) Urine Blood 2+ H (Negative) Urine Nitrite Negative (Negative) Urine Bilirubin Negative (Negative) Urine Urobilinogen Negative (Negative) Ur Leukocyte Esterase Negative (Negative) Urine WBC (Auto) 1-5 (0-5) /hpf Urine RBC (Auto) >30 H (0-4) /hpf U Hyaline Cast (Auto) 1-5 (0-5) /lpf U Epithel Cells (Auto) 10-20 H (0-5) /lpf Urine Bacteria (Auto) Negative (Negative) Diagnostic Findings Femur X-Ray 07/07/23 14:53 XR femur LT 2V routine CLINICAL HISTORY: fall. Left hip pain. COMPARISON STUDY: None. FINDINGS: There is a comminuted and displaced intertrochanteric fracture within the proximal left femur. No dislocation of the femoral head. The visualized pelvic bones are intact. The mid to distal left femur is intact. IMPRESSION: Comminuted and displaced intertrochanteric fracture within the proximal left femur. ACT 112: Negative or not required by law. Electronically signed by: Peterson Triplett M.D. 07/07/2023 4:00 PM Chest X-Ray 07/07/23 14:54 SINGLE VIEW CHEST CLINICAL HISTORY: Fall. FINDINGS: An AP supine chest radiograph is compared to study dated 05/19/2022. The heart is mildly enlarged noting atherosclerotic calcification of the thoracic aorta. There is diffuse interstitial thickening. No focal airspace consolidation or large pleural effusion is identified. No pneumothorax is seen. The skeletal structures are osteopenic. The bony thorax is grossly intact. IMPRESSION: 1. Cardiomegaly without radiographic evidence of congestive failure. 2. There is diffuse nonspecific interstitial thickening. This could represent a mild pneumonitis or possibly fluid overload. Correlate clinically. ACT 112: Negative or not required by law. Electronically signed by: Mao Greenwood M.D. 07/07/2023 3:50 PM Pelvis X-Ray 07/07/23 16:36 SINGLE VIEW PELVIS CLINICAL HISTORY: Preoperative examination. Left hip fracture. FINDINGS: An AP, portable, supine view of the pelvis is correlated with radiographs of the left femur performed earlier the same day 07/07/2023. The skeletal structures are osteopenic. Again seen is a comminuted and angulated intertrochanteric fracture of the left proximal femur. There is medial displacement of the lesser trochanter. Overlying soft tissue edema is noted. No additional acute fracture is seen involving the right hip or the bony pelvis. Moderate arthritic change and joint space narrowing is seen in the hips. There is degenerative sclerosis of the sacroiliac joints. IMPRESSION: 1. Unchanged appearance of an intertrochanteric fracture of the left proximal femur. 2. No additional fracture is seen involving the right hip or the bony pelvis. Electronically signed by: Mao Greenwood M.D. 07/07/2023 5:34 PM (1) Closed intertrochanteric fracture of left hip Encounter type: initial encounter Fracture alignment: displaced Qualified Code(s): S72.142A - Displaced intertrochanteric fracture of left femur, initial encounter for closed fracture
[2023-07-08] MEDS ORDERED: ATROPINE SULFATE 0.1 MG/ML 10ML SYR IV PRN (12:11)
[2023-07-08] MEDS ORDERED: ePHEDrine sulfate 50 MG/ML AMP IV PRN (12:11)
[2023-07-08] MEDS ORDERED: fentaNYL citrate PF 100 MCG/2 ML VIAL IV PRN (12:11)
[2023-07-08] MEDS ORDERED: ONDANSETRON INJ 2 MG/ML 2 ML VIAL IV PRN (12:11)
--- NOTE | 2023-07-08 12:14 | Anesthesiology Consultation ---
Date of Service July 08, 2023 Assessment & Plan (1) Encounter for pre-operative examination: Chart Review Chart Review: Acceptable Risk for Surgery and Patient NOT seen in Pre Admission Testing Consults Requested none History Surgery Operation Date: 07/08/23 07:00 Proposed Procedures p Left Trochanteric Femur Fracture - Chris Draper MD Height/Weight Height: 5 ft 1 in Weight: 53.2 kg Allergies Allergy/AdvReac Type Severity Reaction Status Date / Time ciprofloxacin [From Cipro] Allergy Mild Rash Verified 06/07/23 13:17 clopidogrel [From Plavix] Allergy Mild Rash Verified 06/07/23 13:17 lisinopril [From Zestril] Allergy Mild Rash Verified 06/07/23 13:17 Penicillins Allergy Mild Rash Verified 06/07/23 13:17 Tetanus Vaccines and Toxoid Allergy Mild Rash Verified 06/07/23 13:17 Calcium Channel Blocking AdvReac Unknown told not Verified 06/07/23 13:17 Agent Dilt to take d/t allergy to plavix isosorbide [From Imdur] AdvReac Unknown told not Verified 06/07/23 13:17 to take d/t allergy to plavix Medications Home Medications Medication Instructions Recorded Confirmed Last Taken acetaminophen 500 mg tablet 500 mg PO Q6H PRN Pain 05/27/20 07/07/23 Unknown (Tylenol Extra Strength) aspirin 81 mg tablet,delayed 81 mg PO QAM 05/27/20 07/07/23 06/14/22 release (Adult Aspirin Regimen) cholecalciferol (vitamin D3) 50 50 mcg PO QAM 05/27/20 07/07/23 06/16/22 07:00 mcg (2,000 unit) tablet (Vitamin D3) cranberry 500 mg capsule 500 mg PO BID 05/27/20 07/07/23 06/16/22 07:00 omeprazole 20 mg capsule,delayed 20 mg PO QAM 05/27/20 07/07/23 06/17/22 05:30 release psyllium husk 0.4 gram capsule 0.4 g PO BID 05/27/20 07/07/23 06/16/22 17:00 (Metamucil) calcium carbonate 600 mg calcium 600 mg PO BID 06/05/21 07/07/23 06/16/22 17:00 (1,500 mg) tablet (Calcium) zoledronic acid 5 mg/100 mL in 1 ea IV YEARLY 09/02/21 06/07/23 11/19/21 mannitol 5 %-water intravenous piggybck (Reclast) amlodipine 2.5 mg-benazepril 10 mg 1 cap PO DAILY 11/12/22 06/07/23 Unknown capsule letrozole 2.5 mg tablet 2.5 mg PO DAILY 12/08/22 07/07/23 Unknown losartan 100 mg tablet 100 mg PO DAILY #90 tabs 02/03/23 07/07/23 Unknown pravastatin 20 mg tablet 20 mg PO DAILY #90 tabs 03/05/23 07/07/23 Unknown clonidine HCl 0.1 mg tablet 0.1 mg PO BID #180 tabs 05/03/23 07/07/23 Unknown metoprolol tartrate 50 mg tablet 50 mg PO BID #180 tabs 06/28/23 07/07/23 Unknown Active Medications Generic Name Dose Route Start Last Admin Trade Name Freq PRN Reason Stop Dose Admin Hydromorphone HCl 0.5 mg 07/07/23 19:38 07/08/23 03:03 Hydromorphone Inj 0.5 Mg/0.5 Ml Syr IV 07/21/23 19:37 0.5 mg Q2H PRN Administration Moderate Pain (4,5,6) on NRS Hydromorphone HCl 1 mg 07/07/23 19:38 07/08/23 10:52 Hydromorphone Inj 1 Mg/Ml Syringe IV 07/21/23 19:37 1 mg Q2H PRN Administration Severe Pain (7,8,9,10) on NRS Lactated Ringer's 1,000 mls @ 60 mls/hr 07/08/23 06:00 07/08/23 06:02 Lr IV 07/08/23 22:39 60 mls/hr .[id number] DANK Administration Letrozole 2.5 mg 07/08/23 09:00 07/08/23 07:47 Letrozole 2.5 Mg Tab PO 08/07/23 08:59 2.5 mg DAILY DANK Administration Metoprolol Tartrate 50 mg 07/07/23 21:00 07/08/23 07:48 Metoprolol Tartrate 50 Mg Tab PO 08/06/23 20:59 50 mg BID DANK Administration Ondansetron HCl 4 mg 07/07/23 19:38 07/08/23 08:21 Ondansetron Inj 2 Mg/Ml 2 Ml Vial IV 08/06/23 19:37 4 mg Q6H PRN Administration Nausea Pantoprazole Sodium 40 mg 07/08/23 09:00 07/08/23 07:48 Pantoprazole 40 Mg Tab PO 08/07/23 08:59 40 mg QAM DANK Administration Pravastatin Sodium 20 mg 07/08/23 09:00 07/08/23 07:48 Pravastatin Sod 20 Mg Tab PO 08/07/23 08:59 20 mg DAILY DANK Administration Psyllium Hydrophilic Mucilloid 1 pkt 07/07/23 21:00 07/08/23 07:50 Psyllium Or Guar Gum Fiber Powder Packet PO 08/06/23 20:59 Not Given BID DANK NPO Date Last Intake of Fluids: 07/07/23 Time Last Intake of Fluids: 12:00 Date Last Intake of Solids: 07/07/23 Time Last Intake of Solids: 12:00 Past Medical History Medical History 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 Roberto Osteoporosis Hyperlipidemia Hypertension Thyroid nodule being monitored Exercise / Class Metabolic Activity II 4-5 Yardwork/Stairs/Walk up hill Past Family History Family History Mother Cancer Sister Diabetes Heart disease Cancer Hypertension Other No family history of adverse response to anesthesia Denies family history of Ovarian cancer Prostate cancer Myocardial infarction Breast cancer Colorectal cancer Past Surgical History Surgical History H/O right breast biopsy (06/17/22) Right Breast Biopsy with [employer](Right) - Omid Woodward, DO, FACS History of tooth extraction History of tonsillectomy Hx of colonoscopy H/O dilation and curettage S/P surgical removal of pilonidal cyst H/O breast biopsy 1970?>RT/BENIGN S/P colon resection (2006) 2006 S/P appendectomy S/P coronary artery stent placement (2005) 2006>1 stent placed *[facility] Social History Smoking Status: Never smoker tobacco type: cigarettes Smoking cigarettes per day: .[id number] Do You Dip or Chew Tobacco: No Hx Alcohol Use: No Hx Substance Use: No substance use type: does not use Physical Exam Vital Signs Last Vital Signs Temp 36.8 C 07/08/23 11:23 Pulse 121 H 07/08/23 11:23 Resp 20 07/08/23 11:23 BP 139/67 07/08/23 11:23 Pulse Ox 99 07/08/23 11:23 O2 Del Method Nasal Cannula 07/08/23 11:23 O2 Flow Rate 1 07/08/23 11:23 Testing Laboratory Results 07/08/23 06:40 07/08/23 06:40 Urine Color Dark Yellow 07/07/23 17:38 Urine Appearance Clear (Clear) 07/07/23 17:38 Urine pH 6.0 (4.5-7.5) 07/07/23 17:38 Ur Specific [place] 1.023 (1.000-1.030) 07/07/23 17:38 Urine Protein 1+ (Negative) H 07/07/23 17:38 Urine Glucose (UA) Negative (Negative) 07/07/23 17:38 Urine Ketones Trace (Negative) H 07/07/23 17:38 Urine Nitrite Negative (Negative) 07/07/23 17:38 Ur Leukocyte Esterase Negative (Negative) 07/07/23 17:38 Urine WBC (Auto) 1-5 /hpf (0-5) 07/07/23 17:38 Urine RBC (Auto) >30 /hpf (0-4) H 07/07/23 17:38 U Hyaline Cast (Auto) 1-5 /lpf (0-5) 07/07/23 17:38 U Epithel Cells (Auto) 10-20 /lpf (0-5) H 07/07/23 17:38 Urine Bacteria (Auto) Negative (Negative) 07/07/23 17:38 Chest X-Ray Date: 07/07/23 Normal sinus rhythm Left axis deviation Left bundle branch block Abnormal ECG When compared with ECG of 19-MAY-2022 10:29, T wave inversion more evident in Lateral leads Echocardiogram 8/22: Echo. EF 55-60%. No .
[2023-07-08] MEDS ORDERED: BUPIVACAINE 0.5 % 5 MG/1 ML PF 10ML VIAL ONE (12:57)
[2023-07-08] MEDS ORDERED: PROPOFOL IV EMULSION 10 MG/ML 20 ML VIAL IV ONE (13:19)
[2023-07-08] MEDS ORDERED: LIDOCAINE 2% 2 ML VIAL/AMP(20MG/ML) INFIL ONE (13:19)
[2023-07-08] MEDS ORDERED: fentaNYL citrate PF 100 MCG/2 ML VIAL ONE (13:19)
[2023-07-08] MEDS ORDERED: PHENYLEPHRINE HCL 10 MG/ML VIAL ONE (14:41)
[2023-07-08] MEDS ORDERED: PHENYLEPHRINE 100MCG/ML 10ML SYR IV ONE (14:41)
[2023-07-08] MEDS ORDERED: VASOPRESSIN 20 UNIT/ML VIAL ONE (14:41)
[2023-07-08] MEDS ORDERED: ONDANSETRON INJ 2 MG/ML 2 ML VIAL ONE (15:02)
--- NOTE | 2023-07-08 15:22 | Operative Report ---
Post Operative Report Pre & Post Diagnosis Operation Date: 07/08/23 07:00 Pre-Op Diagnosis: FALL, LEFT FEMUR FRACTURE Post-Op Diagnosis: FALL, LEFT FEMUR FRACTURE I identified the patient and participated in the time-out.: Yes Procedure Operation Date: 07/08/23 07:00 Actual Procedures p Left Trochanteric Femur Fracture(Left) - Chris Draper MD Surgeon Chris Draper MD Hospitality Intern Isabella Serrano PA-C Estimated Blood Loss 25 Findings Consistent with Post-Op Diagnosis Specimens none Description of Procedure I was present during the entire case assisting with positioning, prepping, draping, wound retraction, wound closure and dressing application. No fellow present. Please see Dr. Draper procedure note for specifics of the case. I attest to the content of the Intraoperative Record and any orders documented therein. Any exceptions are noted below.
--- NOTE | 2023-07-08 15:25 | Fluoroscopy Report ---
FL hip LT 2-3V CLINICAL HISTORY: LEFT SHORT TROCHNAIL. Left hip fracture. COMPARISON STUDY: Left femur 07/07/2023. FLUOROSCOPY TIME: 1 minute and 28 seconds FLUOROSCOPY IMAGES: 5 Ka,r: 17.7 mGy FINDINGS: Internal fixation of a proximal left femoral fracture with an intramedullary kacey and interl ocking femoral neck pin. The alignment is near-anatomic. The hardware is intact. IMPRESSION: Fluoroscopic assistance as above. ACT 112: Negative or not required by law. Electronically signed by: Peterson Triplett M.D. 07/08/2023 3:23 PM
--- NOTE | 2023-07-08 15:52 | Operative Report ---
Post Operative Report Pre & Post Diagnosis Operation Date: 07/08/23 07:00 Pre-Op Diagnosis: comminuted, displaced, left intertrochanteric femur fracture Post-Op Diagnosis: comminuted, displaced, left intertrochanteric femur fracture I identified the patient and participated in the time-out.: Yes Procedure Operation Date: 07/08/23 07:00 Actual Procedures open reduction internal fixation comminuted, displaced, left intertrochanteric femur fracture - Chris Draper MD Surgeon Chris Draper MD Printer Machine Isabella Serrano PA-C Estimated Blood Loss 25 Findings Consistent with Post-Op Diagnosis Specimens none Anesthesia Type Spinal MAC Complications none Disposition Disposition: Recovery Room Indications 88-year-old female, slipped and fell yesterday onto [employer] driveway trying to clean snow off her car. Immediate onset of left hip pain. She was brought to the emergency room where x-rays demonstrated comminuted displaced intertrochanteric left femur fracture. I had a long discussion with her about the diagnosis and treatment options. Reviewed the risks and benefits of surgery, alternatives, and expected outcomes. She elected to proceed with surgery. All questions were answered. Informed consent was signed. Description of Procedure Patient was identified in preoperative holding area where her surgical site was marked. She was brought back to the operating room where spinal anesthetic was administered. She was then carefully moved onto the fracture table. The operative foot was padded with cotton roll. She was then placed in the boots bilaterally. She was slid down against the perineal post. Legs were scissored to facilitate fluoroscopic visualization. Fluoroscopy was then brought in. I was able to obtain a reduction of the fracture by combination of traction and internal rotation of the leg. The operative site was then prepped and draped in the usual sterile fashion. Prior to incision a multidisciplinary timeout was called. All in the room were in agreement. I began by making a 5 cm long incision starting approximately 4 cm above the tip of the greater trochanter in line with the femur. I dissected down to subcutaneous tissues to the level of fascia. Guidewire was then inserted through the fascia and the starting point was optimized On the AP and lateral fluoroscopic views. Guidewire was then driven down to the level of the fracture. The fascia was then incised on each side of the wire to allow the placement of the opening reamer down onto the tip of the trochanter. Opening reamer was used just through the proximal aspect of the fracture. I then opened up an 11 mm diameter intermediate length Synthes nail for additional stability of the fracture. nail was then inserted into the distal fracture fragment. The nail was advanced to the appropriate level. I then made a small stab incision along the lateral aspect the femur through the outrigger guide. The guide sleeve was inserted through the incision and advanced down onto the lateral cortex of the femur. A guidewire was then drilled up into the femoral head and the center center position. This was measured to be 95 mm. I elected to use a 90 mm helical blade. The cortical reamer was used followed by the step reamer. The helical blade was then advanced up into the femoral head. Excellent fixation was obtained. I did not feel that any compression was necessary as we had a good reduction of the intertrochanteric fragment. Next, the knife was used to make a stab incision for a static interlocking screw. The guide sleeve was inserted through the skin incision and we drilled bicortically through the nail. The measurement came to 36 mm. The 5 mm titanium screw was placed without difficulty. We then obtained our final fluoroscopic images. I was very happy with the reduction, position of the hardware, and the length of our screws. Wounds were then irrigated out with copious amounts normal saline. Fascia was closed with #1 Vicryl sutures. Subcutaneous layer was closed with #1 Vicryl. 2-0 Vicryl was used in the deep dermal layers for both incisions. Christiano were used for the skin. Sterile dressings were applied. Patient's sedation was then lifted and transferred to the recovery room in stable condition. Postoperative course: Patient be readmitted to the internal medicine service. Because of the comminuted nature of her fracture I am going to keep her toe- touch weightbearing for the next 2 weeks. She will follow-up in my clinic 2 weeks from now for staple removal and repeat x-rays. DVT prophylaxis per her pr imary team. I attest to the content of the Intraoperative Record and any orders documented therein. Any exceptions are noted below.
--- NOTE | 2023-07-08 16:32 | XRay Report ---
LEFT HIP 2 VIEWS CLINICAL HISTORY: Postoperative examination. FINDINGS: AP and crosstable lateral views of the left hip are compared to study dated 07/07/2023. The skeletal structures are osteopenic. There has been intertrochanteric and intramedullary nail fixation of a comminuted intertrochanteric fracture of the left proximal femur. Near-anatomic alignment is re stored. A single cortical lag screw transfixes the distal intramedullary nail. The orthopedic hardwar e appears intact. No new fracture is seen. Skin clips, soft tissue swelling, and subcutaneous gas ove rlying the left hip are expected postsurgical findings. The visualized left hemipelvis appears intact . IMPRESSION: Expected postsurgical findings status post open reduction and internal fixation of the le ft proximal femur. Electronically signed by: Mao Greenwood M.D. 07/08/2023 4:31 PM
--- NOTE | 2023-07-08 16:37 | Hospitalist Progress Note ---
Date of Service July 08, 2023 Assessment & Plan (1) Closed intertrochanteric fracture of left hip: Plan: Femur x-ray revealed comminuted and displaced intertrochanteric fracture within the proximal left femur Orthopedic surgery consulted - ORIF left femur fracture with Dr. Draper 07/08 - EBL 25 - toe touch weight bearing x2 weeks Pain control Acetaminophen 1000 mg IV q8h for pain 13 Dilaudid 0.5 mg IV q2h for pain 46 Dilaudid 1.0 mg IV q2h for pain 710 (2) Fall: Plan: Patient slipped on ice and fell on her left side while going to clean off her car in the snow on 07/07 EKG revealed NSR at 97 bpm; QTc 480; old LBBB Femur fracture (as above) as a result (3) Stented coronary artery: Plan: CAD s/p stent in 2006 Patient reports she took aspirin the morning of 07/07 Aspirin held 07/08, will resume 07/09 (4) Chronic kidney disease, stage 3 (moderate): Plan: BUN 29, creatinine 1.26 (baseline 1.09), EGFR 38 on arrival Avoid nephrotoxic agents where possible (5) GERD (gastroesophageal reflux disease): Plan: Continue PPI (6) Hyperlipidemia: Plan: Continue pravastatin (7) Hypertension: Plan: Continue metoprolol Restart clonidine at 0.05mg BID with hold parameters (home dose 0.1) to prevent reflex tachycardia Hold losartan Per last PCP note, patient is NOT taking amlodipinebenazepril Plan Disposition: continued inpatient stay, VTE PPx: SCDs/Teds, consider chemical dvt proh tomorrow Admission and Anticipated Discharge Date Admission Date: July 07, 2023 Supervising Physician Co-Signing Physician Notes Attending Attestation - Chart reviewed, care plan d/w STACY Fiore. I agree w/ the perry components of her documentation. Wu Smith MD Subjective Patient lying in bed, shortly after arriving from PACU. and daughter present at bedside. Feeling well currently. Nausea controlled since pain is controlled. Last BM 07/07. No CP or SOB Review of Systems Review of Systems: All systems reviewed & are unremarkable except as noted in Subjective Physical Exam Physical Exam: General: NAD, thin and pleasant VS as above Resp: normal respiratory effort, lungs clear to auscultation (anteriorly) CV: RRR, no murmur, Abd: normal bowel sounds, non tender, no hepatosplenomegaly Extremities: able to wiggle toes, pulses intact. Neuro: A&O x3, Skin: intact, no lesions noted Results & Data Results & Data Vital Signs (Past 12 Hours) Vital Signs Temp Pulse Pulse Pulse Resp BP Pulse Ox 07/08/23 16:00 128 H 14 123/62 93 07/08/23 15:50 37.3 C 120 H 17 100/76 96 07/08/23 15:40 125 H 15 99/73 L 100 07/08/23 15:30 125 H 12 114/84 100 07/08/23 15:23 36.5 C 90 14 130/59 L 99 07/08/23 11:23 36.8 C 121 H 20 139/67 99 07/08/23 10:15 93 H 07/08/23 07:46 36.6 C 127 H 15 133/71 96 O2 Del Method O2 Flow Rate 07/08/23 16:00 Room Air 07/08/23 15:50 Room Air 07/08/23 15:40 Oxymask 4 07/08/23 15:30 Oxymask 13 07/08/23 15:23 Oxymask 13 07/08/23 11:23 Nasal Cannula 1 07/08/23 10:15 07/08/23 07:46 Nasal Cannula 2 Laboratory Results CBC and chemistry reviewed Diagnostic Findings Femur xray reviewed PG Care Time/CCT Total # of Minutes Spent Total Time Spent with Patient: Total time spent is greater than 50% in coordination of care (as documented) at patient's floor/unit and/or counseling patient: Coding Level of Care Code 57346 SUB INP/OBS CARE 2/35MIN Diagnoses Closed intertrochanteric fracture of left hip S72.142A Encounter type: initial encounter Fracture alignment: displaced Fall W19.XXXA Encounter type: initial encounter Stented coronary artery Z95.5 Chronic kidney disease, stage 3 (moderate) N18.30 GERD (gastroesophageal reflux disease) K21.9 Hyperlipidemia E78.5 Hypertension I10 (1) Closed intertrochanteric fracture of left hip Encounter type: initial encounter Fracture alignment: displaced Qualified Code(s): S72.142A - Displaced intertrochanteric fracture of left femur, initial encounter for closed fracture (2) Fall Encounter type: initial encounter Qualified Code(s): W19.XXXA - Unspecified fall, initial encounter
[2023-07-08] MEDS: ceFAZolin 2000MG 2,000 MG/15 ML SYR IV SCH (16:39)
[2023-07-08] MEDS ORDERED: cloNIDine HCL 0.1 MG TAB PO SCH (21:00)
[2023-07-08] MEDS: CALCIUM CARBONATE 1250MG TAB PO SCH (21:16)
[2023-07-08] MEDS: ASPIRIN 81 MG ECTAB PO SCH (21:16)
[2023-07-08] MEDS: cloNIDine HCL 0.1 MG TAB PO SCH (21:17)
[2023-07-09] MEDS: ceFAZolin 2000MG 2,000 MG/15 ML SYR IV SCH (00:20)
[2023-07-09] MEDS: ACETAMINOPHEN 500 MG TAB PO PRN (00:24)
[2023-07-09] MEDS: HYDROmorphone INJ 0.5 MG/0.5 ML SYR IV PRN ×2 (04:49→20:20)
--- NOTE | 2023-07-09 06:12 | Anesthesiology Progress Note ---
Date of Service July 09, 2023 Anesthesia Post Procedure Vital Signs Vital Signs: Temp Pulse Pulse Pulse Resp BP Pulse Ox 07/09/23 03:10 98.2 F 84 20 124/60 99 07/08/23 23:37 98.1 F 79 20 125/64 97 07/08/23 23:00 82 07/08/23 20:11 98.2 F 92 H 20 128/63 95 07/08/23 18:34 86 07/08/23 17:56 98 H 18 114/57 L 92 07/08/23 17:03 98.2 F 91 H 18 111/58 L 92 07/08/23 16:30 98.8 F 92 H 18 106/48 L 92 07/08/23 16:00 128 H 14 123/62 93 07/08/23 15:50 99.1 F 120 H 17 100/76 96 07/08/23 15:40 125 H 15 99/73 L 100 07/08/23 15:30 125 H 12 114/84 100 07/08/23 15:23 97.7 F 90 14 130/59 L 99 07/08/23 11:23 98.2 F 121 H 20 139/67 99 07/08/23 10:15 93 H 07/08/23 07:46 97.8 F 127 H 15 133/71 96 O2 Del Method O2 Flow Rate 07/09/23 03:10 Nasal Cannula 2 07/08/23 23:37 Nasal Cannula 2 07/08/23 23:00 07/08/23 20:11 Nasal Cannula 2 07/08/23 18:34 07/08/23 17:56 Room Air 07/08/23 17:03 Room Air 07/08/23 16:30 Room Air 07/08/23 16:00 Room Air 07/08/23 15:50 Room Air 07/08/23 15:40 Oxymask 4 07/08/23 15:30 Oxymask 13 07/08/23 15:23 Oxymask 13 07/08/23 11:23 Nasal Cannula 1 07/08/23 10:15 07/08/23 07:46 Nasal Cannula 2 Pain Intensity Left Hip: Pain Intensity: 5 Transfer of Care Handoff Completed per policy Notes Mental Status: alert / awake / arousable and participated in evaluation Patient Amnestic to Procedure: Yes Nausea / Vomiting: adequately controlled Pain: adequately controlled Airway Patency, RR, SpO2: stable & adequate BP & HR: stable & adequate Hydration State: stable & adequate Neuraxial Anesthesia: was administered and sensory block is resolving Anesthetic Complications: no major complications apparent and Pt Satisfied with anesthetic care
[2023-07-09 08:01] LABS: Calcium 8.7 mg/dl (8.6-10.3); Creatinine Clr Calc Pharmacy 27.9 ml/min; Est GFR (African American) 48.2 ml/min; Est GFR (Non-African American) 41.6 ml/min; Potassium 4.6 mmol/L (3.5-5.1)
[2023-07-09 08:14] LABS: Basophils # (auto) 0.04 K/uL (0.00-0.20); Basophils % (auto) 0.3 %; Eosinophils # (auto) 0.01 K/uL (0.00-0.50); Eosinophils % (auto) 0.1 %; Hematocrit (blood only) 33.1 % (37.0-47.0); Hemoglobin 11.1 g/dl (12.0-16.0); Immature Granulocytes # (auto) 0.04 K/uL (0.01-0.20); Immature Granulocytes % (auto) 0.3 %; Lymphocytes # (auto) 1.25 K/uL (1.20-3.40); Mean Corpuscular Hemoglobin 32.5 pg (25.0-34.0); Mean Corpuscular Hgb Conc 33.5 g/dL (32.0-36.0); Mean Corpuscular Volume 96.8 fL (80.0-100.0); Mean Platelet Volume 10.6 fL (9.4-12.4); Monocytes # (auto) 1.41 K/uL (0.11-0.59); Monocytes % (auto) 11.3 %; Neutrophils # (auto) 9.73 K/uL (1.40-6.50); Platelet Count 178 K/uL (130-400); RDW Coefficient of Variation 13.2 % (11.5-14.5); RDW Standard Deviation 47.8 fL (36.4-46.3); Red Blood Count 3.42 M/uL (4.20-5.40); White Blood Count 12.48 K/ul (4.8-10.8)
[2023-07-09] MEDS ORDERED: LOSARTAN POTASSIUM 50 MG TAB PO SCH (09:00)
[2023-07-09] MEDS ORDERED: CHOLECALCIFEROL 1,000 UNITS 25 MCG TAB PO SCH (09:00)
[2023-07-09] MEDS: ASPIRIN 81 MG ECTAB PO SCH ×2 (09:22→20:31)
[2023-07-09] MEDS: CALCIUM CARBONATE 1250MG TAB PO SCH ×2 (09:22→20:31)
[2023-07-09] MEDS: cloNIDine HCL 0.1 MG TAB PO SCH ×2 (09:22→20:30)
[2023-07-09] MEDS: METOPROLOL TARTRATE 50 MG TAB PO SCH ×2 (09:23→20:31)
[2023-07-09] MEDS: PANTOprazole 40 MG TAB PO SCH (09:23)
[2023-07-09] MEDS: PRAVASTATIN SOD 20 MG TAB PO SCH (09:23)
[2023-07-09] MEDS: LETROZOLE 2.5 MG TAB PO SCH (09:23)
[2023-07-09] MEDS: PSYLLIUM or GUAR GUM FIBER POWDER PACKET PO SCH ×2 (09:23→20:32)
[2023-07-09] MEDS: HYDROmorphone INJ 1 MG/ML SYRINGE IV PRN (09:28)
--- NOTE | 2023-07-09 09:39 | Orthopedic Progress Note ---
Date of Service July 09, 2023 Assessment & Plan (1) Closed intertrochanteric fracture of left hip: Plan: Patient is post op day #1, s/p a left hip ORIF trochanteric femur fracture with Dr. Draper 07/08/23 -Doing as expected -She will be touch toe weightbearing on the left LE x 2 weeks until imaging is obtained with walker and assistance. -She will follow up in our office in 2 weeks for imaging and staple removal -Dressings may be changed if it they become soiled. Monitor and reinforce/change as needed -Continue with ice to the left hip prn -Pain control per primary -DVT prophylaxis per primary -CM d/c planning, recommend placement for rehabilitation -We will continue to follow post operatively Present on Admission?: Yes Admission and Anticipated Discharge Date Admission Date: July 07, 2023 Subjective Patient is an 88-year-old female who is postop day 1 status post a left ORIF of a comminuted displaced left intertrochanteric femur fracture with Dr. Draper. She is seen at bedside this a.m. She is sitting upright in bed just finished breakfast. She states she had been doing fairly well until she has been sitting in this position. She states her pain is 45/10 in the left groin. She states she was feeling pretty good and is requesting something for pain. She complained that she had some nausea last night and vomiting because of the pain however she has been able to eat. She denies any nausea vomiting or abdominal pain at this time. She states her leg is sore if she tries to move it and it gets painful in the groin and seems like it catches. She has been utilizing ice and this is helping. She denies any numbness in the leg, calf pain, chest pain, shortness of breath or dizziness. She offers no concerns at this time. Review of Systems Review of Systems: Please refer to HPI Physical Exam Physical Exam: General: Pt is sitting upright in bed. Alert and oriented x3 No acute distress LLE: Dressings are in place without any soiling. Her left leg is slightly internally rotated. She is able to actively Dorsiflex and plantarflex ankle. She requires assistance with knee flexion. She tolerates hip internal and external rotation with some discomfort. She is unable to do a straight leg raise. She can wiggle her toes. Distal extremity warm and pink. Faint DP pulse. Sensation intact over the LLE Results & Data Vital Signs (Past 12 Hours) Vital Signs Temp Pulse Pulse Resp BP Pulse Ox O2 Del Method 07/09/23 07:50 36.7 C 92 H 16 126/67 99 Nasal Cannula 07/09/23 07:23 82 07/09/23 03:10 36.8 C 84 20 124/60 99 Nasal Cannula 07/08/23 23:37 36.7 C 79 20 125/64 97 Nasal Cannula 07/08/23 23:00 82 O2 Flow Rate 07/09/23 07:50 2 07/09/23 07:23 07/09/23 03:10 2 07/08/23 23:37 2 07/08/23 23:00 Laboratory Results 07/09/23 Range/Units 06:32 WBC 12.48 H (4.8-10.8) K/ul RBC 3.42 L (4.20-5.40) M/uL Hgb 11.1 L D (12.0-16.0) g/dl Hct 33.1 L (37.0-47.0) % MCV 96.8 (80.0-100.0) fL MCH 32.5 (25.0-34.0) pg MCHC 33.5 (32.0-36.0) g/dL RDW Std Deviation 47.8 H (36.4-46.3) fL RDW Coeff of Angela 13.2 (11.5-14.5) % Plt Count 178 (130-400) K/uL MPV 10.6 (9.4-12.4) fL Immature Gran % (Auto) 0.3 % Neut % (Auto) 78.0 % Lymph % (Auto) 10.0 % Gray % (Auto) 11.3 % Eos % (Auto) 0.1 % Baso % (Auto) 0.3 % Neut # (Auto) 9.73 H (1.40-6.50) K/uL Lymph # (Auto) 1.25 (1.20-3.40) K/uL Gray # (Auto) 1.41 H (0.11-0.59) K/uL Eos # (Auto) 0.01 (0.00-0.50) K/uL Baso # (Auto) 0.04 (0.00-0.20) K/uL Immature Gran # (Auto) 0.04 (0.01-0.20) K/uL Sodium 139 (136-145) mmol/L Potassium 4.6 (3.5-5.1) mmol/L Chloride 106 (98-107) mmol/L Carbon Dioxide 27 (21-32) mmol/L Anion Gap 6 (3-11) BUN 41 H (6-23) mg/dl Creatinine 1.17 (0.6-1.2) mg/dl Est Cr Clr Drug Dosing 27.9 ml/min Est GFR ( Amer) 48.2 ml/min Est GFR (Non-Af Amer) 41.6 ml/min BUN/Creatinine Ratio 35.0 H (10-20) Glucose 117 H (70-99(Fasting)) mg/dl Calcium 8.7 (8.6-10.3) mg/dl 25-OH Vitamin D Total 43.6 (30-100) ng/ml Diagnostic Findings Hip X-Ray 07/08/23 00:00 FL hip LT 2-3V CLINICAL HISTORY: LEFT SHORT TROCHNAIL. Left hip fracture. COMPARISON STUDY: Left femur 07/07/2023. FLUOROSCOPY TIME: 1 minute and 28 seconds FLUOROSCOPY IMAGES: 5 Ka,r: 17.7 mGy FINDINGS: Internal fixation of a proximal left femoral fracture with an intramedullary kacey and interlocking femoral neck pin. The alignment is near- anatomic. The hardware is intact. IMPRESSION: Fluoroscopic assistance as above. ACT 112: Negative or not required by law. Electronically signed by: Peterson Triplett M.D. 07/08/2023 3:23 PM Hip X-Ray 07/08/23 15:22 LEFT HIP 2 VIEWS CLINICAL HISTORY: Postoperative examination. FINDINGS: AP and crosstable lateral views of the left hip are compared to study dated 07/07/2023. The skeletal structures are osteopenic. There has been intertrochanteric and intramedullary nail fixation of a comminuted intertrochanteric fracture of the left proximal femur. Near-anatomic alignment is restored. A single cortical lag screw transfixes the distal intramedullary nail. The orthopedic hardware appears intact. No new fracture is seen. Skin clips, soft tissue swelling, and subcutaneous gas overlying the left hip are expected postsurgical findings. The visualized left hemipelvis appears intact. IMPRESSION: Expected postsurgical findings status post open reduction and internal fixation of the left proximal femur. Electronically signed by: Mao Greenwood M.D. 07/08/2023 4:31 PM (1) Closed intertrochanteric fracture of left hip Encounter type: initial encounter Fracture alignment: displaced Qualified Code(s): S72.142A - Displaced intertrochanteric fracture of left femur, initial encounter for closed fracture
--- NOTE | 2023-07-09 11:52 | Hospitalist Progress Note ---
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 Draper 07/08 - EBL 25 - toe touch weight bearing x2 weeks Pain control Acetaminophen 1000 mg IV q8h for pain 13 Dilaudid 0.5 mg IV q2h for pain 46 Dilaudid 1.0 mg IV q2h for pain 710 Wean O2 as able, goal >95% PT/OT - recommending rehab Vit D level: 43 - Takes 2000 units chronically - Will increase to 5000 units daily (2) Fall: Plan: Patient slipped on ice and fell on her left side while going to clean off her car in the snow on 07/07 EKG revealed NSR at 97 bpm; QTc 480; old LBBB Femur fracture (as above) as a result (3) Stented coronary artery: Plan: CAD s/p stent in 2006 Patient reports she took aspirin the morning of 07/07, Aspirin held 07/08, Continue Aspirin 81mg starting 07/09 (4) Chronic kidney disease, stage 3 (moderate): Plan: BUN 29, creatinine 1.26 (baseline 1.09), EGFR 38 on arrival. Creatinine 1.43 07/08 --> Acute kidney failure Avoid nephrotoxic agents where possible Kidney function back to baseline 07/09 (5) GERD (gastroesophageal reflux disease): Plan: Continue PPI (6) Hyperlipidemia: Plan: Continue pravastatin (7) Hypertension: Plan: Continue metoprolol Increase clonidine to 0.1mg BID (home dose) Hold losartan (hopeful to restart tomorrow) Per last PCP note, patient is NOT taking amlodipinebenazepril Plan Disposition: continued inpatient stay, case management following for placement VTE PPx: SCDs/Teds, ASA 81mg BID Admission and Anticipated Discharge Date Admission Date: July 07, 2023 Supervising Physician Co-Signing Physician Notes Attending Attestation - Chart reviewed, care plan d/w STACY Fiore. I agree w/ the perry components of her documentation. Wu Smith MD Subjective Patient sitting up in the chair, reports fatigue from sitting up so long. Pain is well controlled, more concerned about her nausea. Has had poor oral intake because of this. Had some sharper pains when working with therapy. Therapy recommeding rehab. Denies CP or SOB. Tele - (was off for most of the night) SR 80s Review of Systems Review of Systems: All systems reviewed & are unremarkable except as noted in Subjective Physical Exam Physical Exam: General: NAD, thin and pleasant, sitting up in the chair VS as above Resp: normal respiratory effort, lungs clear to auscultation. Currently on 1L NC CV: RRR, no murmur, Abd: normal bowel sounds, non tender, no hepatosplenomegaly Extremities: able to wiggle toes, pulses intact. B/L ching hose in place. Ice over left hip, dressing c/d/i Neuro: A&O x3, Skin: intact, no lesions noted Results & Data Results & Data Vital Signs (Past 12 Hours) Vital Signs Temp Pulse Pulse Resp BP Pulse Ox O2 Del Method 07/09/23 07:50 36.7 C 92 H 16 126/67 99 Nasal Cannula 07/09/23 07:23 82 07/09/23 03:10 36.8 C 84 20 124/60 99 Nasal Cannula O2 Flow Rate 07/09/23 07:50 2 07/09/23 07:23 07/09/23 03:10 2 Laboratory Results CBC, chemistry, Vit D reviewed PG Care Time/CCT Total # of Minutes Spent Total Time Spent with Patient: Total time spent is greater than 50% in coordination of care (as documented) at patient's floor/unit and/or counseling patient: Coding Level of Care Code 88739 SUB INP/OBS CARE 2/35MIN Diagnoses Closed intertrochanteric fracture of left hip S72.142A Encounter type: initial encounter Fracture alignment: displaced Fall W19.XXXA Encounter type: initial encounter Stented coronary artery Z95.5 Chronic kidney disease, stage 3 (moderate) N18.30 GERD (gastroesophageal reflux disease) K21.9 Hyperlipidemia, unspecified hyperlipidemia type E78.5 Hyperlipidemia type: unspecified Hypertension, unspecified type I10 Hypertension type: unspecified (1) Closed intertrochanteric fracture of left hip Encounter type: initial encounter Fracture alignment: displaced Qualified Code(s): S72.142A - Displaced intertrochanteric fracture of left femur, initial encounter for closed fracture (2) Fall Encounter type: initial encounter Qualified Code(s): W19.XXXA - Unspecified fall, initial encounter (6) Hyperlipidemia Hyperlipidemia type: unspecified Qualified Code(s): E78.5 - Hyperlipidemia, unspecified (7) Hypertension Hypertension type: unspecified Qualified Code(s): I10 - Essential (primary) hypertension
[2023-07-09] MEDS: ONDANSETRON INJ 2 MG/ML 2 ML VIAL IV PRN (20:19)
--- NOTE | 2023-07-09 22:10 | Electrocardiogram Report ---
Test Reason : Blood Pressure : / mmHG Vent. Rate : 097 BPM Atrial Rate : 097 BPM P-R Int : 172 ms QRS Dur : 138 ms QT Int : 378 ms P-R-T Axes : 084 -60 099 degrees QTc Int : 480 ms Normal sinus rhythm Left axis deviation Left bundle branch block Abnormal ECG When compared with ECG of 19-MAY-2022 10:29, No significant change Confirmed by Juvenal Cornelius ([id number]) on 07/09/2023 10:09:40 PM Referred By: Confirmed By:Juvenal Cornelius
[2023-07-10] MEDS: PRAVASTATIN SOD 20 MG TAB PO SCH (08:52)
[2023-07-10] MEDS: ASPIRIN 81 MG ECTAB PO SCH ×2 (08:52→20:25)
[2023-07-10] MEDS: cloNIDine HCL 0.1 MG TAB PO SCH ×2 (08:52→20:25)
[2023-07-10] MEDS: PANTOprazole 40 MG TAB PO SCH (08:52)
[2023-07-10] MEDS: LETROZOLE 2.5 MG TAB PO SCH (08:52)
[2023-07-10] MEDS: CALCIUM CARBONATE 1250MG TAB PO SCH ×2 (08:52→20:25)
[2023-07-10] MEDS: PSYLLIUM or GUAR GUM FIBER POWDER PACKET PO SCH ×3 (08:53→20:28)
[2023-07-10] MEDS: METOPROLOL TARTRATE 50 MG TAB PO SCH ×2 (08:53→20:25)
[2023-07-10] MEDS: CHOLECALCIFEROL 5,000 UNITS 125 MCG TAB PO SCH (08:53)
[2023-07-10] MEDS: ACETAMINOPHEN 500 MG TAB PO PRN ×2 (09:20→20:25)
[2023-07-10] MEDS: LOSARTAN POTASSIUM 50 MG TAB PO SCH (09:21)
[2023-07-10 09:56] LABS: Basophils # (auto) 0.04 K/uL (0.00-0.20); Basophils % (auto) 0.3 %; Eosinophils # (auto) 0.17 K/uL (0.00-0.50); Eosinophils % (auto) 1.4 %; Hematocrit (blood only) 30.4 % (37.0-47.0); Hemoglobin 10.4 g/dl (12.0-16.0); Immature Granulocytes # (auto) 0.06 K/uL (0.01-0.20); Immature Granulocytes % (auto) 0.5 %; Lymphocytes # (auto) 1.15 K/uL (1.20-3.40); Lymphocytes % (auto) 9.2 %; Mean Corpuscular Hemoglobin 32.5 pg (25.0-34.0); Mean Corpuscular Hgb Conc 34.2 g/dL (32.0-36.0); Mean Platelet Volume 10.2 fL (9.4-12.4); Monocytes # (auto) 0.57 K/uL (0.11-0.59); Monocytes % (auto) 4.6 %; Neutrophils # (auto) 10.45 K/uL (1.40-6.50); Platelet Count 178 K/uL (130-400); RDW Standard Deviation 45.4 fL (36.4-46.3); White Blood Count 12.44 K/ul (4.8-10.8)
[2023-07-10 10:12] LABS: BUN Creatinine Ratio 34.4 (10-20); Calcium 8.9 mg/dl (8.6-10.3); Creatinine Clr Calc Pharmacy 36.1 ml/min; Est GFR (African American) 66.2 ml/min; Est GFR (Non-African American) 57.1 ml/min; Potassium 3.6 mmol/L (3.5-5.1)
--- NOTE | 2023-07-10 11:05 | Orthopedic Progress Note ---
Date of Service July 10, 2023 Assessment & Plan (1) Closed intertrochanteric fracture of left hip: Plan: Patient is post op day #2, s/p a left hip ORIF trochanteric femur fracture with Dr. Draper 07/08/23 -Doing as expected -She will be touch toe weightbearing on the left LE x 2 weeks until imaging is obtained with walker and assistance. -She will follow up in our office in 2 weeks for imaging and staple removal -Dressings may be changed if it they become soiled. Monitor and reinforce/change as needed -Continue with ice to the left hip prn -Pain control per primary -DVT prophylaxis per primary -CM d/c planning, recommend placement for rehabilitation -We will continue to follow post operatively Admission and Anticipated Discharge Date Admission Date: July 07, 2023 Subjective Postop day 2 following open reduction internal fixation comminuted left intertrochanteric femur fracture. Patient reports she was able to eat some oatmeal this morning, which was an improvement from yesterday. Reports her pain is well-controlled on Tylenol and occasional tramadol. Therapy recommeding rehab. Denies CP or SOB. No numbness or tingling down her leg. Physical Exam Physical Exam: General: Patient sitting in a chair next to her bedside alert and oriented x 3. LLE: Dressings in the lateral aspect the hip are clean dry and intact. No redness or evidence of infection. Leg lengths symmetric. Distal extremity warm and pink. Faint DP pulse. Sensation in tact distally. Results & Data Vital Signs (Past 12 Hours) Vital Signs Temp Pulse Pulse Resp BP Pulse Ox O2 Del Method 07/10/23 07:48 36.8 C 16 132/65 98 Room Air 07/10/23 07:33 95 H 07/10/23 05:15 36.9 C 91 H 14 132/64 98 Room Air 07/10/23 00:09 36.7 C 96 H 14 133/71 97 Room Air (1) Closed intertrochanteric fracture of left hip Encounter type: initial encounter Fracture alignment: displaced Qualified Code(s): S72.142A - Displaced intertrochanteric fracture of left femur, initial encounter for closed fracture
[2023-07-10] MEDS ORDERED: oxyCODONE HCL IR 5 MG TAB (IMMEDIATE RELEASE) PO PRN ×2 (11:42→11:45)
[2023-07-10] MEDS ORDERED: HYDROmorphone INJ 0.5 MG/0.5 ML SYR IV PRN (11:44)
--- NOTE | 2023-07-10 11:52 | Hospitalist Progress Note ---
Date of Service July 10, 2023 Assessment & Plan (1) Closed intertrochanteric fracture of left hip: Plan: Age-related osteoporosis with current pathologic fracture, left femur Femur x-ray revealed comminuted and displaced intertrochanteric fracture within the proximal left femur Orthopedic surgery consulted - ORIF left femur fracture with Dr. Draper 07/08 - EBL 25 - toe touch weight bearing x2 weeks Pain control with Acetaminophen PO, oxycodone prn and Dilaudid prn for severe pain now stable on room air PT/OT - recommending rehab Vit D level: 43 - Takes 2000 units chronically - Will increase to 5000 units daily Murphy catheter to be removed today (2) Fall: Plan: Patient slipped on ice and fell on her left side while going to clean off her car in the snow on 07/07 EKG revealed NSR at 97 bpm; QTc 480; old LBBB Femur fracture (as above) as a result (3) Stented coronary artery: Plan: CAD s/p stent in 2006 Patient reports she took aspirin the morning of 07/07, Aspirin held 07/08, Continue Aspirin 81mg starting 07/09 (4) Chronic kidney disease, stage 3 (moderate): Plan: BUN 29, creatinine 1.26 (baseline 1.09), EGFR 38 on arrival. Creatinine 1.43 07/08 --> Acute kidney failure Avoid nephrotoxic agents where possible Kidney function back to baseline 07/09 (5) GERD (gastroesophageal reflux disease): Plan: Continue PPI (6) Hyperlipidemia: Plan: Continue pravastatin (7) Hypertension: Plan: Continue metoprolol Increase clonidine to 0.1mg BID (home dose) resume losartan at 50 mg (home dose is 100 mg) Per last PCP note, patient is NOT taking amlodipinebenazepril Plan Disposition: continued inpatient stay, medically stable for discharge, case management following for placement VTE PPx: SCDs/Teds, ASA 81mg BID Admission and Anticipated Discharge Date Admission Date: July 07, 2023 Supervising Physician Co-Signing Physician Notes Attending Attestation - Chart reviewed, care plan d/w STACY Fiore. I agree w/ the perry components of her documentation. Wu Smith MD Subjective Patient seen sitting up in the chair. Feeling better than yesterday. States she worked with therapy and feels like she is improving, having difficulty with external rotation of the leg. Pain is well-controlled. Nausea has improved, was able to eat breakfast this morning. Has not moved her bowels yet, but is passing gas Denies any chest pain or racing heart beat or shortness of breath. Is now on room air. Tele - NSR with PVCs 90s Review of Systems Review of Systems: All systems reviewed & are unremarkable except as noted in Subjective Physical Exam Physical Exam: General: NAD, thin and pleasant, sitting up in the chair VS as above Resp: normal respiratory effort, lungs clear to auscultation. CV: RRR, no murmur, Abd: normal bowel sounds, non tender, no hepatosplenomegaly Extremities: able to wiggle toes, pulses intact. B/L ching hose in place. Ice over left hip, dressing c/d/i Neuro: A&O x3, Skin: intact, no lesions noted Results & Data Results & Data Vital Signs (Past 12 Hours) Vital Signs Temp Pulse Pulse Resp BP Pulse Ox O2 Del Method 07/10/23 07:48 36.8 C 16 132/65 98 Room Air 07/10/23 07:33 95 H 07/10/23 05:15 36.9 C 91 H 14 132/64 98 Room Air 07/10/23 00:09 36.7 C 96 H 14 133/71 97 Room Air Laboratory Results CBC and chemistry reviewed PG Care Time/CCT Total # of Minutes Spent Total Time Spent with Patient: Total time spent is greater than 50% in coordination of care (as documented) at patient's floor/unit and/or counseling patient: Coding Level of Care Code 65532 SUB INP/OBS CARE 2/35MIN Diagnoses Closed intertrochanteric fracture of left hip S72.142A Encounter type: initial encounter Fracture alignment: displaced Fall W19.XXXA Encounter type: initial encounter Stented coronary artery Z95.5 Chronic kidney disease, stage 3 (moderate) N18.30 GERD (gastroesophageal reflux disease) K21.9 Hyperlipidemia, unspecified hyperlipidemia type E78.5 Hyperlipidemia type: unspecified Hypertension, unspecified type I10 Hypertension type: unspecified (1) Closed intertrochanteric fracture of left hip Encounter type: initial encounter Fracture alignment: displaced Qualified Code(s): S72.142A - Displaced intertrochanteric fracture of left femur, initial encounter for closed fracture (2) Fall Encounter type: initial encounter Qualified Code(s): W19.XXXA - Unspecified fall, initial encounter (6) Hyperlipidemia Hyperlipidemia type: unspecified Qualified Code(s): E78.5 - Hyperlipidemia, unspecified (7) Hypertension Hypertension type: unspecified Qualified Code(s): I10 - Essential (primary) hypertension
[2023-07-10] MEDS: POLYETHYLENE (MIRALAX) 17 GM PACK PO SCH (18:47)
[2023-07-10] MEDS: DOCUSATE SODIUM/SENNA 50/8.6MG TAB PO SCH ×2 (18:47→20:26)
[2023-07-11 07:43] LABS: Hematocrit (blood only) 31.4 % (37.0-47.0); Hemoglobin 10.4 g/dl (12.0-16.0); Mean Corpuscular Hemoglobin 32.2 pg (25.0-34.0); Mean Corpuscular Hgb Conc 33.1 g/dL (32.0-36.0); Mean Corpuscular Volume 97.2 fL (80.0-100.0); Mean Platelet Volume 10.5 fL (9.4-12.4); Platelet Count 190 K/uL (130-400); RDW Coefficient of Variation 12.9 % (11.5-14.5); RDW Standard Deviation 46.4 fL (36.4-46.3); Red Blood Count 3.23 M/uL (4.20-5.40); White Blood Count 12.22 K/ul (4.8-10.8)
[2023-07-11 08:04] LABS: Calcium 8.9 mg/dl (8.6-10.3); Creatinine Clr Calc Pharmacy 37.1 ml/min; Est GFR (African American) 77.5 ml/min; Est GFR (Non-African American) 66.8 ml/min; Potassium 3.8 mmol/L (3.5-5.1)
[2023-07-11] MEDS: LETROZOLE 2.5 MG TAB PO SCH (08:47)
[2023-07-11] MEDS: PANTOprazole 40 MG TAB PO SCH (08:48)
[2023-07-11] MEDS: LOSARTAN POTASSIUM 50 MG TAB PO SCH (08:48)
[2023-07-11] MEDS: CHOLECALCIFEROL 5,000 UNITS 125 MCG TAB PO SCH (08:48)
[2023-07-11] MEDS: PRAVASTATIN SOD 20 MG TAB PO SCH (08:48)
[2023-07-11] MEDS: DOCUSATE SODIUM/SENNA 50/8.6MG TAB PO SCH (08:48)
[2023-07-11] MEDS: cloNIDine HCL 0.1 MG TAB PO SCH (08:49)
[2023-07-11] MEDS: POLYETHYLENE (MIRALAX) 17 GM PACK PO SCH (08:49)
[2023-07-11] MEDS: METOPROLOL TARTRATE 50 MG TAB PO SCH (08:49)
[2023-07-11] MEDS: CALCIUM CARBONATE 1250MG TAB PO SCH (08:50)
[2023-07-11] MEDS: ASPIRIN 81 MG ECTAB PO SCH (08:50)
[2023-07-11] MEDS: PSYLLIUM or GUAR GUM FIBER POWDER PACKET PO SCH (08:50)
[2023-07-11] MEDS: ACETAMINOPHEN 500 MG TAB PO PRN (08:58)
--- NOTE | 2023-07-11 12:11 | Discharge Summary ---
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 Patient presented after slipping on ice while going outside to clean her car from the side on 07/07. She fell on her left hip. Denies head strike. She does not use ambulatory assist devices at home. She reports that she took all of her regular morning medications; no recent change medications. She reports that her memory of falling was foggy, but denies dizziness or lightheadedness before falling. Left femur x-ray revealed a displaced intertrochanteric fracture within the proximal left femur on arrival. She denies prior injuries to the left leg, but notes she might have broken one of her legs when she was 5 years old. At time of admission, she reports her left hip pain is 6/10; no radiation; movement makes it worse. No at home oxygen use. She denies alcohol, smoking, tobacco use. SpO2 89% on 4 L NC, hypertensive at 164/88, mildly tachycardic at 106 bpm at time of admission. ED course: Fentanyl 50mcg IV Zofran 4 mg IV ROS: Patient endorses severe left hip pain, nausea from pain, vomiting x5 episodes (due to the pain). Patient denies fever, chills, sweats, dizziness, lightheadedness, chest pain, SOB, abdominal pain, diarrhea, urinary s/s, burning with urination, or numbness/tingling in the left leg. Principal Dx & Hospital Course #1 = Principal Diagnosis (1) Closed intertrochanteric fracture of left hip: Age-related osteoporosis with current pathologic fracture, left femur Femur x-ray revealed comminuted and displaced intertrochanteric fracture within the proximal left femur Orthopedic surgery consulted - ORIF left femur fracture with Dr. Draper 07/08 - toe touch weight bearing x2 weeks ASA 81mg BID for 30 days, after than continue once per day Tylenol for pain control PT/OT - recommending rehab, discharged to [facility] Vit D level: 43, supplementation increased to 5000 units daily (2) Fall: Patient slipped on ice and fell on her left side while going to clean off her car in the snow on 07/07 EKG revealed NSR at 97 bpm; QTc 480; old LBBB Femur fracture (as above) as a result (3) Stented coronary artery: CAD s/p stent in 2006 Patient reports she took aspirin the morning of 07/07, Aspirin held 07/08, continue aspirin 81 mg daily after the 30 days of twice daily (4) Chronic kidney disease, stage 3 (moderate): BUN 29, creatinine 1.26 (baseline 1.09), EGFR 38 on arrival. Creatinine 1.43 07/08 --> Acute kidney failure Avoid nephrotoxic agents where possible Kidney function back to baseline 07/09 (5) GERD (gastroesophageal reflux disease): Continue PPI (6) Hyperlipidemia: Continue pravastatin (7) Hypertension: Continue metoprolol Continue clonidine to 0.1mg BID (home dose) continue losartan at 50 mg (home dose is 100 mg) Per last PCP note, patient is NOT taking amlodipinebenazepril Plan dispo: Discharged to [facility] rehab Discharge Exam General: NAD, thin and pleasant, sitting up in the chair VS as above Resp: normal respiratory effort, lungs clear to auscultation. CV: RRR, no murmur, Abd: normal bowel sounds, non tender, no hepatosplenomegaly Extremities: able to wiggle toes, pulses intact. B/L ching hose in place. dressing c/d/i Neuro: A&O x3, Skin: intact, no lesions noted Updated Medication List Medication Instructions Recorded Confirmed Type acetaminophen 500 mg tablet 500 mg PO Q6H PRN Pain 05/27/20 07/07/23 History (Tylenol Extra Strength) cranberry 500 mg capsule 500 mg PO BID 05/27/20 07/07/23 History omeprazole 20 mg capsule,delayed 20 mg PO QAM 05/27/20 07/07/23 History release psyllium husk 0.4 gram capsule 0.4 g PO BID 05/27/20 07/07/23 History (Metamucil) calcium carbonate 600 mg calcium 600 mg PO BID 06/05/21 07/07/23 History (1,500 mg) tablet (Calcium) zoledronic acid 5 mg/100 mL in 1 ea IV YEARLY 09/02/21 06/07/23 History mannitol 5 %-water intravenous piggybck (Reclast) letrozole 2.5 mg tablet 2.5 mg PO DAILY 12/08/22 07/07/23 History pravastatin 20 mg tablet 20 mg PO DAILY #90 tabs 03/05/23 07/07/23 Rx clonidine HCl 0.1 mg tablet 0.1 mg PO BID #180 tabs 05/03/23 07/07/23 Rx metoprolol tartrate 50 mg tablet 50 mg PO BID #180 tabs 06/28/23 07/07/23 Rx aspirin 81 mg tablet,delayed 81 mg PO BID #30 tabs 07/11/23 Rx release cholecalciferol (vitamin D3) 125 5,000 unit PO QAM 30 days #30 tabs 07/11/23 Rx mcg (5,000 unit) tablet losartan 50 mg tablet 50 mg PO DAILY 30 days #30 tabs 07/11/23 Rx polyethylene glycol 3350 17 gram 17 g PO DAILY 30 days #30 ea 07/11/23 Rx oral powder packet (Miralax) sennosides 8.6 mg-docusate sodium 1 tab PO QAM 30 days #30 tabs 07/11/23 Rx 50 mg tablet (Senokot-S) Hospital Stay Data Consultations 07/07/23 15:58 ED Decision to Admit Stat Procedures Performed Operation Date: 07/08/23 07:00 Actual Procedures p Left Trochanteric Femur Fracture(Left) - Chris Draper MD Diagnostic Imagining Performed 07/08/23 FL hip LT 2-3V Routine Pending Results Patient Have Any Pending Studies at Discharge: No Discharge Instructions Given to Patient (Per Discharging Provider) Mrs. Walsh you were hospitalized after a fall that resulted in a left femur fracture. This was surgically repaired by Dr. Draper on 07/08/2023. Following the surgery you are to continue to be toe-touch weightbearing for until your follow- up with orthopedics. We have increased your baby aspirin to twice a day for DVT prophylaxis. This will need to be continued for 30 days. After 30 days you can go back to taking the 81 mg once a day. We increased your vitamin D supplementation in the setting of a fracture, continue this until you follow-up with your PCP. We decreased her blood pressure pressure medications while you are here. You will continue on your metoprolol and clonidine. The losartan is at 50 mg. Once you are more mobile your PCP may increase this depending on your blood pressure readings. Continue with the aggressive bowel regimen, as her chronic constipation is likely worsened from narcotic use. Additional instructions from the orthopedic team are below. If you have any complications with the incision or the left leg please give them a call. If you have any new chest pain or shortness of breath you can return to the ER. It was our pleasure taking care of you, Jenni Fiore For [facility]: - bowel regimen with fiber MiraLAX and senna daily. Could add additional dose of MiraLAX if needed - Tylenol for pain control - monitor blood pressures, titrate losartan as needed Total Time Total Time Spent Total Time Spent (In Minutes): Time spend day of discharge 40 minutes including direct patient care, medication reconciliation, documentation, review of labs and images, and coordination of care. Supervising Physician Co-Signing Physician Notes Attending Attestation and Discharge Note: Pt NOT seen prior to discharge. I went to the pt's room to perform a physical exam and unfortunately the patient was released before my arrival. However, extensive chart review undertaken. Discharge care plan d/w PA Jenni Fiore. I agree w/ the perry components of her discharge documentation. 88yo female with history of breast cancer who presented after having had a fall. This resulted in a left hip fracture. Patient underwent ORIF of L hip fracture on 07/08/[address] Chris Draper. Post-op course characterized by mild-moderate acute blood loss anemia (about 3- 4gm drop) and LESLI. Peak Cr 1.4, improving to 0.79 by discharge. Other labs were stable while here. Seen by PT/OT - rehab advised; transferring to [facility] at discharge. Will need f/u with orthopedics in about 2 weeks post-surgical date. DVT proph - aspirin 81mg BID x 6 weeks. Wu Smith MD Coding Level of Care Code 38706 INP/OBS DISCH >30 MIN Diagnoses Closed intertrochanteric fracture of left hip S72.142A Encounter type: initial encounter Fracture alignment: displaced Fall [id number] Encounter type: initial encounter Stented coronary artery Z95.5 Chronic kidney disease, stage 3 (moderate) N18.30 GERD (gastroesophageal reflux disease) K21.9 Hyperlipidemia, unspecified hyperlipidemia type E78.5 Hyperlipidemia type: unspecified Hypertension, unspecified type I10 Hypertension type: unspecified
== END 2023-07-11 14:12 | DRG 481 ==
LOC: ED 14:48 → EDINP 17:10 → SUATTDRO 17:10 → 2N 20:52
DX: Z88.1 Allergy status to other antibiotic agents; W19.XXXA Unspecified fall, initial encounter; Z88.8 Allergy status to other drugs, medicaments and biological substances; Z88.7 Allergy status to serum and vaccine; N18.30 Chronic kidney disease, stage 3 unspecified; Z87.891 Personal history of nicotine dependence; N17.9 Acute kidney failure, unspecified; M80.052A Age-related osteoporosis with current pathological fracture, left femur, initial encounter for fracture; Z88.0 Allergy status to penicillin; I12.9 Hypertensive chronic kidney disease with stage 1 through stage 4 chronic kidney disease, or unspecified chronic kidney disease; K21.9 Gastro-esophageal reflux disease without esophagitis; E78.5 Hyperlipidemia, unspecified